=== PATIENT | male | born 1970 | race Caucasian/White ===

== ENCOUNTER 2021-05-11 07:07 | Emergency (ER) | payer OTHER, SELFPAY ==
--- NOTE | ~2021-05-11 | XR_ITS ---
EXAMINATION: XR SHOULDER, LEFT CLINICAL INFORMATION: Fall, trauma, pain COMPARISON: None TECHNIQUE: Left shoulder is imaged in 3 views. FINDINGS: There is no fracture, dislocation, destructive process. The acromioclavicular alignment is normal. There are no visible rotator cuff calcifications. Left lung apex is no pneumothorax or pleural reaction. XR/XR shoulder LT min 2V IMPRESSION: Normal left shoulder.
[2021-05-11 08:50] VITALS: BP 120/93; PULSE 55; RESP 16; TEMP 36.2; O2SAT 98; BMI 21.5
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
== END 2021-05-11 10:15 | disposition home or self-care (01) ==
PROVIDERS: Emergency Provider Internal Medicine; PCP Internal Medicine
DX: S40.012A Contusion of left shoulder, initial encounter (principal); S00.91XA Abrasion of unspecified part of head, initial encounter; S80.212A Abrasion, left knee, initial encounter; S40.212A Abrasion of left shoulder, initial encounter; V29.9XXA Motorcycle rider (driver) (passenger) injured in unspecified traffic accident, initial encounter; Y93.9 Activity, unspecified; Y92.9 Unspecified place or not applicable; Y99.9 Unspecified external cause status
CPT/HCPCS: 73030; 99283

== ENCOUNTER 2023-02-15 16:51 | Emergency (ER) | payer BC, SELFPAY ==
[2023-02-15 17:22] VITALS: BP 141/79; PULSE 96; RESP 18; TEMP 36.4; O2SAT 95; BMI 21.5
[2023-02-15] MEDS: Cyclobenzaprine HCl 10 MG TABLET PO (17:39)
[2023-02-15] MEDS: Acetaminophen 325 MG TABLET 975 MG PO (17:40)
[2023-02-15] MEDS: Ketorolac Tromethamine 30 MG/ML VIAL IM (17:40)
--- NOTE | 2023-02-15 17:44 | PC.NURSE ---
pt a&ox3, vss, medicated per MAR for 8/10 lower back pain after putting on shoes this afternoon at work. reports that pain is intermittent and stabbing in nature.
--- NOTE | 2023-02-15 17:51 | ED_ITS ---
HPI - Back Pain/Injury General Chief Complaint: Back Pain/Injury Stated Complaint: lower back spasms Time Seen by Provider: 02/15/23 17:15 History of Present Illness HPI Narrative: Patient is a 52 yo male here for lower back pain shooting down his legs with numbness and tingling down both legs. He states he was bending over lifting at work and immediately felt a stabbing pain in his lower back region. He states he has not taken anything for pain releif. The pain is worse with laying down and sitting. He denies fever, chills,sob, or chest pain. He denies any medical history or any drug use, but is currently on suboxone. MD elicited complaint: back pain Onset (ago): day(s) (2) Timing: progressively worsening Severity: severe Quality: stabbing Location: right lower back and right upper back Radiation: left upper leg, right upper leg, left leg below the knee and right leg below the knee Exacerbating factors: sitting upright and walking Context: while lifting and bending Associated symptoms: denies other symptoms Related Data Home Medications Medication Instructions Recorded Confirmed buprenorphine 8 mg-naloxone 2 mg 10 mg sublingual BID 03/01/22 sublingual film (Suboxone) buspirone 10 mg tablet 10 mg PO BID 03/01/22 sertraline 50 mg tablet 50 mg PO BEDTIME 03/01/22 Previous Rx's Medication Instructions Recorded meloxicam 15 mg tablet 15 mg PO DAILY #14 tabs 03/01/22 amoxicillin 875 mg-potassium 1 tab PO Q12H 10 days #20 tabs 11/20/22 clavulanate 125 mg tablet trazodone 150 mg tablet 150 mg PO BEDTIME #90 tabs 01/07/23 cyclobenzaprine 10 mg tablet 10 mg PO TID PRN pain #10 tabs 02/15/23 lidocaine 5 % topical patch 1 patch topical DAILY pain #15 ea 02/15/23 Allergies Allergy/AdvReac Type Severity Reaction Status Date / Time No Known Allergies Allergy Verified 02/15/23 17:21 Review of Systems Review of Systems: Yes all other systems are reviewed and are negative [facility] Past Medical History Medical History History of fracture of clavicle No known health problems Surgical History History of bunionectomy History of hernia surgery Family History Family History Sister Mental health disorder Social History Social History Housing: Apartment Alcohol intake: never Patient Tobacco Use Status: Current everyday Tobacco user Tobacco use type: Cigarette Cigarette Packs Per Day: 0.5 Cigarettes Per Day: 10 e-Cigarette/Vaping Use: Never Used Second Hand Smoke Exposure: Yes Advance Directives: No Advance Directives Information Provided: No service: No Current occupational status: unemployed Cognitive needs: No Hearing needs: No Vision needs: No Physical Exam Vital Signs: Vital Signs: Last Vital Signs Temp 97.6 F 02/15/23 17:22 Pulse 96 02/15/23 17:22 Resp 18 02/15/23 17:22 BP 141/79 H 02/15/23 17:22 Pulse Ox 95 02/15/23 17:22 O2 Del Method Room Air 02/15/23 17:22 BMI result Body Mass Index 21.5 Appearance: Alert. Oriented X3. No acute distress. Head: normocephalic, atraumatic. Neck: Normal inspection. CVS: Normal heart rate and rhythm. Pulses normal. Respiratory: No respiratory distress. Breath sounds normal. Skin: Skin warm and dry. Normal skin color. Normal skin turgor. Back: Spine is not painful to palpation. Palpable pain in both left and right lower back. Extremities: Positive straight leg test bilaterally. Pain with hip flexion and extension bilaterally. Neuro/psych: Oriented X 3. No motor deficit. No sensory deficit. Normal speech and cognition. Medications Administered Discontinued Medications Generic Name Dose Route Start Last Admin Trade Name Freq PRN Reason Stop Dose Admin Acetaminophen 975 mg 02/15/23 17:31 02/15/23 17:40 Acetaminophen 325 Mg Tablet PO 02/15/23 17:32 975 mg ONCE ONE Administration Cyclobenzaprine HCl 10 mg 02/15/23 17:35 02/15/23 17:39 Cyclobenzaprine Hcl 10 Mg Tablet PO 02/15/23 17:36 10 mg ONCE ONE Administration Ketorolac Tromethamine 30 mg 02/15/23 17:31 02/15/23 17:40 Ketorolac Tromethamine 30 Mg/Ml Vial IM 02/15/23 17:32 30 mg ONCE ONE Administration Medical Decision Making Medical Decision Making [facility] Narrative: Patient's symptoms are most consistent with bilateral sciatica. He denies fever, or genitourinary symptoms so cauda equina and spinal abcess are unlikely. Patient was given cyclobenzaprine, acetaminophen, and ketorlac with relief. patient stable for discharge home with muscle relaxers, NSAIDs, Lidoderm. he will follow-up with primary care doctor on saturday. Differential Diagnosis Differential Diagnoses: The differential diagnosis associated with the presentation includes Inflammatory disorders, malignancy, trauma, osteoporosis, nerve root compress ion, radiculopathy, plexopathy, degenerative disc disease, disc herniation, spinal stenosis, sacroiliac joint dysfunction, facet joint injury, and less likely infection?like abscess or diskitis Tests considered The following testing was considered but not selected: imaging of the back was considered, not indicated today, no trauma. Prescription Management I considered prescription management with: Pain Medication Patient previously on Suboxone, will defer narcotics. Critical Care Time Critical Care Time Critical Care Time: No Discharge Plan Discharge Clinical Impression: Sciatica Patient Disposition: Home, Self-Care Instructions: Acute Low Back Pain (ED), Lower Back Exercises (ED) Additional Instructions: Your pain is most likely due to muscle strain and spasm. No bending, lifting or twisting. Use ice several times per day for 20 minutes at a time for the next 48 hours and then change to heat. Take medications as prescribed to help with pain and discomfort. Follow up with your Primary Care Doctor this week. If your pain worsens, if you develop new numbness, tingling, weakness, loss of function or incontinence call 911 or come back to the ER right away for evaluation. Prescriptions: New cyclobenzaprine 10 mg tablet 10 mg PO TID PRN (Reason: pain) Qty: 10 0RF lidocaine 5 % adhesive patch,medicated 1 patch topical DAILY Qty: 15 0RF Rx Instructions: leave on most painful area for up to 12 hrs No Action trazodone 150 mg tablet 150 mg PO BEDTIME Qty: 90 0RF buspirone 10 mg tablet 10 mg PO BID sertraline 50 mg tablet 50 mg PO BEDTIME buprenorphine-naloxone [Suboxone] 8-2 mg film 10 mg sublingual BID meloxicam 15 mg tablet 15 mg PO DAILY Qty: 14 0RF amoxicillin-pot clavulanate 875-125 mg tablet 1 tab PO Q12H 10 Days Qty: 20 0RF Referrals: Po,Christina Rosario MD [Primary Care Provider] - (LBP) Stand Alone Forms: Work/School Release
--- NOTE | 2023-02-15 18:43 | PC.NURSE ---
pt reporting reduction in pain to 6/10, ambulated independently to restroom.
== END 2023-02-15 18:57 | disposition home or self-care (01) ==
PROVIDERS: Emergency Provider Internal Medicine; PCP Internal Medicine
DX: M54.42 Lumbago with sciatica, left side (principal); M54.41 Lumbago with sciatica, right side; F17.210 Nicotine dependence, cigarettes, uncomplicated
CPT/HCPCS: 96372; 99283; 99284; J1885

== ENCOUNTER → 2023-07-18 13:44 | Outpatient (BNVA) | payer SELFPAY | PROVIDERS: PCP Internal Medicine; Visit Provider Physician Assistant Medical ==

== ENCOUNTER 2023-11-26 07:48 | Emergency (ER) | payer OTHER, SELFPAY ==
--- NOTE | ~2023-11-26 | XR_ITS ---
EXAMINATION: XR CHEST CLINICAL INFORMATION: Cough COMPARISON: Left shoulder radiographs 05/11/[address] chest 04/29/2015 TECHNIQUE: 2 views of the chest were obtained. FINDINGS: No significant abnormality is noted involving the heart, lungs, mediastinum, bony thorax or soft tissues. Since the prior shoulder radiographs, the distal end of the left clavicle appears to have been resected. XR/XR chest 2V IMPRESSION: No acute intrathoracic disease.
[2023-11-26 08:03] VITALS: BP 121/91; PULSE 66; RESP 16; TEMP 36.1; O2SAT 99; BMI 21.5
[2023-11-26 08:41] LABS: MANUAL DIFF FLAG NO
[2023-11-26 08:43] LABS: Basophils Absolute Auto 0.1 X10*3/uL (0.0-0.2); Basophils Percent Auto 0.3 % (0-2); Eosinophils Absolute Auto 0.1 X10*3/uL (0.0-0.4); Eosinophils Percent Auto 0.4 % (0-4); Hematocrit 42.6 % (42.0-52.0); Hemoglobin 14.3 g/dl (14.0-18.0); Imm Gran Abs Auto 0.07 X10*3/uL (0.00-0.03); Imm Gran Pct Auto 0.4 % (0.0-0.4); Lymphocytes Absolute Auto 1.4 X10*3/uL (1.2-4.9); Lymphocytes Percent Auto 8.2 % (20-40); Mean Corpuscular HGB Conc 33.6 g/dl (31.0-36.0); Mean Corpuscular Hemoglobin 30.6 pg (27.0-33.0); Mean Platelet Volume 9.2 fL (9.4-12.4); Monocytes Absolute Auto 0.8 X10*3/uL (0.1-1.2); Monocytes Percent Auto 4.4 % (2-11); Neutrophils Absolute Auto 14.9 x10*3/uL (2.0-8.3); Neutrophils Percent Auto 86.3 % (45-73); Platelet Count 217 X10*3/uL (160-400); Red Blood Count 4.68 X10*6/uL (4.60-5.80); Red Cell Distribution Width 13.2 % (11.0-16.0); White Blood Count 17.2 X10*3/uL (4.8-10.8)
--- NOTE | 2023-11-26 08:47 | ED_ITS ---
HPI - Nausea/Vomiting/Diarrhea General Chief complaint: Nausea/Vomiting/Diarrhea Stated complaint: Flu Symptoms Time Seen by Provider: 11/26/23 08:26 Source: patient Mode of arrival: ambulatory History of Present Illness HPI Narrative: 53-year-old male who presents with nausea and vomiting since yesterday, regular alcoholic drinker, also reports cough, everyday smoker, denies any seizures with abstaining from alcohol but states last alcoholic drink was yesterday and attempted to drink coffee today but repeated vomiting and so came into the emergency room. Related Data Home Medications Medication Instructions Recorded Confirmed buprenorphine 8 mg-naloxone 2 mg 10 mg sublingual BID 03/01/22 sublingual film (Suboxone) buspirone 10 mg tablet 10 mg PO BID 03/01/22 sertraline 50 mg tablet 50 mg PO BEDTIME 03/01/22 Previous Rx's Medication Instructions Recorded meloxicam 15 mg tablet 15 mg PO DAILY #14 tabs 03/01/22 amoxicillin 875 mg-potassium 1 tab PO Q12H 10 days #20 tabs 11/20/22 clavulanate 125 mg tablet cyclobenzaprine 10 mg tablet 10 mg PO TID PRN pain #10 tabs 02/15/23 lidocaine 5 % topical patch 1 patch topical DAILY pain #15 ea 02/15/23 trazodone 150 mg tablet 150 mg PO BEDTIME #90 tabs 09/02/23 Allergies Allergy/AdvReac Type Severity Reaction Status Date / Time No Known Allergies Allergy Verified 02/15/23 17:21 Review of Systems 2 Review of Systems: Pertinent positives and negatives as stated in HPI PMFSH Past Medical History Source: nursing notes reviewed Medical History History of fracture of clavicle No known health problems Surgical History History of hernia surgery History of bunionectomy Family History Family History Sister Mental health disorder Social History Social History Housing: Apartment Alcohol intake: current Alcohol type: hard liquor Patient Tobacco Use Status: Current everyday Tobacco user Tobacco use type: Cigarette Cigarette Packs Per Day: 0.5 Cigarettes Per Day: 10 e-Cigarette/Vaping Use: Never Used Second Hand Smoke Exposure: Yes Advance Directives: Yes Advance Directives Information Provided: Yes Advance Directives on File: No service: No Current occupational status: unemployed Cognitive needs: No Hearing needs: No Vision needs: No Physical Exam 2 Vital Signs: Vital Signs: Last Vital Signs Temp 98.5 F 11/26/23 10:13 Pulse 48 L 11/26/23 10:13 Resp 14 11/26/23 10:13 BP 115/78 11/26/23 10:13 Pulse Ox 98 11/26/23 10:13 O2 Del Method Room Air 11/26/23 10:13 BMI result Body Mass Index 21.5 VITAL SIGNS: Reviewed. GENERAL: Well developed, well nourished, in no acute distress. HEAD: Normocephalic/atraumatic EYES: PERRLA, EOMI EARS: Ext canals without abnormality, TMs non-bulging and non-erythematous NOSE: Nares patent bilateral OROPHARYNX: no oral lesions noted, posterior pharynx clear and non-erythematous without noted tonsillar enlargement/erythema/exudates NECK: Supple, no adenopathy LUNGS: Normal breath sounds. No adventitious sounds or accessory muscle use. SpO2<99> CARDIOVASCULAR: Regular rate and rhythm without noted murmurs ABDOMEN: Soft, epigastric discomfort, non-distended with bowel sounds. MUSCULOSKELETAL: No tenderness, deformities, or effusions noted on gross inspection. EXTREMITIES: No cyanosis, clubbing or edema. SKIN: Inspection of the skin reveals no rashes NEUROLOGIC: Alert and oriented x 4. Strength and sensation to light touch were grossly intact x 4. Medications Administered Discontinued Medications Generic Name Dose Route Start Last Admin Trade Name Freq PRN Reason Stop Dose Admin Sodium Chloride 1,000 mls @ 999 mls/hr 11/26/23 08:45 11/26/23 09:11 Ns IV 11/26/23 09:45 999 mls/hr .Q1H1M WILDER Administration Ondansetron HCl 4 mg 11/26/23 08:59 11/26/23 09:11 Ondansetron Hcl 4 Mg/2 Ml Vial IVPUSH 11/26/23 09:00 4 mg ONCE ONE Administration Medical Decision Making Medical Decision Making MDM Narrative: 53-year-old male with history and clinical presentation, DDX: Alcoholic gastritis, pancreatitis, possible viral illness but lower clinical suspicion I reviewed all investigations and patient presents with a noninfectious leukocytosis likely secondary to reactive from nausea and vomiting, patient is otherwise afebrile and chest x-ray is negative for infiltrate. Chemistry indices negative for SHANICE/electrolyte or liver enzyme derangements. Viral testing negative for influenza/RSV/COVID. Patient received 1 L of IV fluids as well as sublingual Zofran and is noted to tolerate both oral and solid intake. Differential Diagnosis Differential Diagnoses: The differential diagnosis associated with the presentation includes Please see the discussion above Admission/Observation Consideration of admission/observation: Escalation of care including admission/observation considered Please see the discussion above Lab Data MDM Lab Attestation statement: I reviewed the patient's lab results. Please see the discussion above 11/26/23 08:37 11/26/23 08:37 Labs: Lab Results 11/26/23 Range/Units 08:37 WBC 17.2 H (4.8-10.8) X10*3/uL RBC 4.68 (4.60-5.80) X10*6/uL Hgb 14.3 (14.0-18.0) g/dl Hct 42.6 (42.0-52.0) % MCV 91.0 (80.0-98.0) fL MCH 30.6 (27.0-33.0) pg MCHC 33.6 (31.0-36.0) g/dl RDW 13.2 (11.0-16.0) % Plt Count 217 (160-400) X10*3/uL MPV 9.2 L (9.4-12.4) fL Immature Gran % (Auto) 0.4 (0.0-0.4) % Neut % (Auto) 86.3 H (45-73) % Lymph % (Auto) 8.2 L (20-40) % [place] % (Auto) 4.4 (2-11) % Eos % (Auto) 0.4 (0-4) % Baso % (Auto) 0.3 (0-2) % Lymph # (Auto) 1.4 (1.2-4.9) X10*3/uL [place] # (Auto) 0.8 (0.1-1.2) X10*3/uL Eos # (Auto) 0.1 (0.0-0.4) X10*3/uL Baso # (Auto) 0.1 (0.0-0.2) X10*3/uL Abs Immat Gran (auto) 0.07 H (0.00-0.03) X10*3/uL Absolute Neuts (auto) 14.9 H (2.0-8.3) x10*3/uL Absolute Nucleated RBC 0.000 (0.0-0.012) X10*3/uL Nucleated RBC % (auto) 0.0 (0.0-0.2) /100WBC Sodium 140 (135-145) mmol/L Potassium 3.9 (3.3-5.1) mmol/L Chloride 105 (96-108) mmol/L Carbon Dioxide 28 (22-29) mmol/L Anion Gap 11 L (12-20) BUN 13 (9-16) mg/dL Creatinine 0.96 (0.5-1.4) mg/dL Estim Creat Clear Calc 83.6 Estimated GFR > 60 Random Glucose 99 (60-115) mg/dL Calcium 9.9 (8.4-10.2) mg/dL Total Bilirubin 0.8 (0.0-1.0) mg/dL AST 17 (5-37) U/L ALT 9 (0-40) U/L Alkaline Phosphatase 66 (39-117) U/L Total Protein 7.3 (6.5-8.0) g/dL Albumin 4.3 (3.5-5.0) g/dL Lipase 14 (8-78) U/L Influenza Type A (PCR) NEGATIVE (Negative) Influenza Type B (PCR) NEGATIVE (Negative) RSV RNA Qual (PCR) NEGATIVE (Negative) SARS-CoV-2 RNA (RT-PCR) NEGATIVE (Negative) Radiology Impression Discussion of test interpretation with radiology: I have reviewed the radiologist's reading. Radiologist Impression: Please see the discussion above Critical Care Time Critical Care Time Critical Care Time: Yes Total Critical Care Time: 30 Attestation: I personally attest to this time spent taking care of the patient. Discharge Plan Discharge Clinical Impression: Gastroenteritis, Bronchitis Patient Disposition: Home, Self-Care Instructions: Gastroenteritis (ED), Chronic Bronchitis (ED) Additional Instructions: 1. Continue to drink plenty of water, please follow-up with your primary care doctor in the next 1-2 days. Return to the ER for any worsening symptoms. Prescriptions: No Action trazodone 150 mg tablet 150 mg PO BEDTIME Qty: 90 0RF cyclobenzaprine 10 mg tablet 10 mg PO TID PRN (Reason: pain) Qty: 10 0RF lidocaine 5 % adhesive patch,medicated 1 patch topical DAILY Qty: 15 0RF Rx Instructions: leave on most painful area for up to 12 hrs buspirone 10 mg tablet 10 mg PO BID sertraline 50 mg tablet 50 mg PO BEDTIME buprenorphine-naloxone [Suboxone] 8-2 mg film 10 mg sublingual BID meloxicam 15 mg tablet 15 mg PO DAILY Qty: 14 0RF amoxicillin-pot clavulanate 875-125 mg tablet 1 tab PO Q12H 10 Days Qty: 20 0RF Referrals: Po,Christina Rosario MD [Primary Care Provider] -
[2023-11-26 09:01] LABS: Alanine Aminotransferase 9 U/L (0-40); Albumin Level 4.3 g/dL (3.5-5.0); Alkaline Phosphatase 66 U/L (39-117); Anion Gap 11 (12-20); Aspartate Amino Transferase 17 U/L (5-37); Bilirubin Total 0.8 mg/dL (0.0-1.0); Blood Urea Nitrogen 13 mg/dL (9-16); Calcium 9.9 mg/dL (8.4-10.2); Carbon Dioxide 28 mmol/L (22-29); Chloride 105 mmol/L (96-108); Creatinine Clr Calc Pharmacy 83.6; Estimated Glomerular Filt Rate > 60; Glucose Random 99 mg/dL (60-115); Lipase 14 U/L (8-78); Potassium 3.9 mmol/L (3.3-5.1); Sodium 140 mmol/L (135-145); Total Protein 7.3 g/dL (6.5-8.0)
[2023-11-26] MEDS: ondansetron HCL 4 MG/2 ML VIAL IVPUSH (09:11)
[2023-11-26] MEDS: 0.9 % Sodium Chloride 1,000 ML 999 ML IV (09:11)
[2023-11-26 09:23] LABS: Influenza A PCR NEGATIVE (Negative); Influenza B PCR NEGATIVE (Negative); Resp Syncy Virus RNA Qual PCR NEGATIVE (Negative); SARS COV2 PCR INHOUSE NEGATIVE (Negative)
--- NOTE | 2023-11-26 09:51 | PC.NURSE ---
PO trial completed and tolerated well at this time, denies n/v/d/pain
[2023-11-26 10:13] VITALS: BP 115/78; PULSE 48; RESP 14; TEMP 36.9; O2SAT 98
== END 2023-11-26 11:35 | disposition home or self-care (01) ==
PROVIDERS: Physician Assistant Medical; Emergency Provider Student in an Organized Health Care Education/Training Program; PCP Internal Medicine
DX: K52.9 Noninfective gastroenteritis and colitis, unspecified (principal); J40 Bronchitis, not specified as acute or chronic; R11.2 Nausea with vomiting, unspecified; R05.9 Cough, unspecified; F17.210 Nicotine dependence, cigarettes, uncomplicated; Z11.52 Encounter for screening for COVID-19; Z20.822 Contact with and (suspected) exposure to COVID-19; Z79.899 Other long term (current) drug therapy
CPT/HCPCS: 0241U; 36415; 71046; 80053; 83690; 85025; 96374; 99284; J2405

== ENCOUNTER 2023-11-28 10:16 | Outpatient (AMB) | payer OTHER, SELFPAY ==
--- NOTE | 2023-11-28 10:16 | A.OFFPC_ITS ---
Intake Visit Reasons: Flu Symptoms [id number] Intake Note: Patient is here today for shortness of breath, yellowish green mucus with cough, congestion, fever, chills, stomach cramps, vomiting and diarrhea. Covid test was negative. 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 Patient was recently in the emergency room for nausea, vomiting and diarrhea. He has history of alcohol use. Blood work showed an elevated white count. Patient was diagnosed with dehydration and given IV fluids. Patient reports that he is improving slowly. The vomiting and nausea have subsided. Does have 1-2 episodes of diarrhea. Continues to feel tired. Requesting a refill on albuterol and omeprazole. [facility] Medical History History of fracture of clavicle No known health problems Surgical History History of hernia surgery History of bunionectomy Family History Sister Mental health disorder Social History (Updated 11/28/23 @ 10:23 by ANIKA Gilmore) Housing: Apartment Alcohol intake: current Alcohol intake frequency: 0-2 drinks per day Alcohol type: hard liquor Patient Tobacco Use Status: Current everyday Tobacco user Tobacco use type: Cigarette Cigarette Packs Per Day: 0.5 Cigarettes Per Day: 10 e-Cigarette/Vaping Use: Never Used Second Hand Smoke Exposure: Yes service: No Current occupational status: employed Cognitive needs: No Hearing needs: No Vision needs: No Questionnaire PHQ-9 Over the last 2 weeks, how often have you been bothered by any of the following problems? 1. Little interest or pleasure in doing things: not at all 2. Feeling down, depressed, or hopeless: not at all 3. Trouble falling or staying asleep, or sleeping too much: not at all 4. Feeling tired or having little energy: not at all 5. Poor appetite or overeating: not at all 6. Feeling bad about yourself - or that you are a failure or have let yourself or your family down: not at all 7. Trouble concentrating on things, such as reading the newspaper or watching television: not at all 8. Moving or speaking so slowly that other people could have noticed. Or the opposite - being so fidgety or restless that you have been moving around a lot more than usual: not at all 9. Thoughts that you would be better off or of hurting yourself in some way: not at all Total score: 0 Depression Screening Interpretation: Negative Depression Screening Done: Yes Source: Developed by Drs. Jason Tiwari, Miguelina Ernandez, Trell Howard and colleagues, with an educational teresita from [employer]. Thrive Questionnaire Date Thrive assessed: 11/28/23 I am a: Patient What is your living situation today?: I have a steady place to live Within the past 12 months, did the food you bought not last and you didn't have the money to get more?: Never true Within the past 12 months, did you worry whether your food would run out before you got money to buy more?: Never true Do you have trouble paying for medicines?: No Do you have trouble getting transportation to medical appointments?: No Do you have trouble paying your heating and electricity bill?: No Do you have trouble taking care of your child, family member or friend?: No Do you have trouble with day-to-day activities such as bathing, preparing meals, shopping, managing finances, etc.?: No Are you currently unemployed and looking for a job?: No Are you interested in more education?: No Currently or been in a relationship where the following occur: no concerns reported THRIVE Score: 0 AUDIT C Alcohol Use Questionnaire (AUDIT-C) 1. How often do you have a drink containing alcohol?: 4 or more times a week 2. How many drinks containing alcohol do you have on a typical day when you are drinking?: 1 or 2 Total Score: 4 DANIELLA-7 AMB Questionnaire DANIELLA-7 Date DANIELLA - 7 assessed: 11/28/23 Feeling nervous, anxious, or on edge: 0 = Not at all Not being able to stop or control worryin = Not at all Worrying too much about different things: 0 = Not at all Trouble relaxin = Not at all Being so restless that it is hard to sit still: 0 = Not at all Becoming easily annoyed or irritable: 0 = Not at all Feeling afraid as if something awful might happen: 0 = Not at all Total DANIELLA-7 score (0-4 normal; 5-9 mild; 10-14 moderate; 15-21 severe): 0 Source: Developed by Drs. Jason Tiwari, Miguelina Ernandez, Trell Howard and colleagues, with an educational teresita from [employer]. Physical exam (Primary Care) Tobacco/Smoking Status: Tobacco use Status Tobacco use date assessed 03/01/22 11/28/23 10:24 Patient Tobacco Use Status Current everyday Tobacco 11/28/23 10:24 Tobacco use type Cigarette 11/28/23 10:24 e-Cigarette/Vaping Use Never Used 11/28/23 10:24 PHQ-9: PHQ-9 Score PHQ-9: Total score 0 11/28/23 10:24 Depression Screening Interpretation: Negative Thrive Assessment: Date of Thrive Assessment Date Thrive assessed 11/28/23 11/28/23 10:24 Currently or been in a relationship where the following occur: no concerns reported Telehealth Telehealth Location of provider rendering services: practice address Location of patient: address on file Patient Identification confirmed using: Name, : Yes Telehealth method: voice only Patient verbally consented to treatment: Yes Patient verbally consented to billing insurance company: Yes Patient informed of any privacy concerns related to visit: Yes Minutes spent on Phone/Video with Pt.: 15 Assessment and Plan Assessment & Plan (1) Gastroenteritis: Code(s): K52.9 - Noninfective gastroenteritis and colitis, unspecified Plan: Blood work from the hospital reviewed. Continue hydration. Medications refilled. Medications: New albuterol sulfate 90 mcg/actuation (Ventolin HFA) 1 inh inhalation QID PRN 8.5 grams 1RF shortness of breath or wheezing pantoprazole 40 mg PO DAILY 14 tabs 0RF Refilled lidocaine 5% leave on most painful area for up to 12 hrs 1 patch topical DAILY 15 ea 0RF pain meloxicam 15 mg PO DAILY 14 tabs 0RF cyclobenzaprine 10 mg PO TID PRN 10 tabs 0RF pain Coding Level of Care Code Tele Est Pt Level 3 (16636) Diagnoses Gastroenteritis K52.9
== END 2023-11-28 12:49 | disposition home or self-care (01) ==
LOC: HO.HMGH 10:16
PROVIDERS: PCP Internal Medicine; Visit Provider Internal Medicine
DX: K52.9 Noninfective gastroenteritis and colitis, unspecified (principal)
CPT/HCPCS: 99213

== ENCOUNTER 2024-04-22 11:02 | Outpatient (AMB) | payer OTHER, SELFPAY ==
[2024-04-22 11:03] VITALS: BP 106/88; PULSE 83; BMI 20.1
--- NOTE | 2024-04-22 11:03 | MHC.PC.OV ---
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 Required: No Allergies No Known Allergies Allergy (Verified 04/22/24 11:03) Medication List - Last Reconciled 04/22/24 by Ashley Wilson PA-C albuterol sulfate 90 mcg/actuation (Ventolin HFA) 1 inh inhalation QID PRN buprenorphine-naloxone 8-2 mg (Suboxone) 10 mg sublingual BID buspirone 10 mg PO BID cyclobenzaprine 10 mg PO TID PRN lidocaine 5% 1 patch topical DAILY meloxicam 15 mg PO DAILY pantoprazole 40 mg PO DAILY sertraline 50 mg PO BEDTIME trazodone 150 mg PO BEDTIME Tobacco use date assessed: 04/22/24 Dental Screening Dental Screen Date: 11/28/23 HPI Back Pain HPI Details 53-year-old male with past medical history depression last seen by Dr. Bowser 11/28/2023 coming in for acute visit. Patient states today that he has been having low back pain with mild radiation to the right hip and sometimes down the legs for the last 2-3 months. He denies any falls or injury. Lying on his side improves the pain and lying on his back worsens the pain. He has been using the Suboxone for the pain and has been previously prescribed muscle relaxers and meloxicam. He also mentions he has been having right foot pain and has a history of a bunionectomy bilaterally and the bunion has returned on the right side. His asthma has been poorly controlled and has been using his rescue inhaler daily for symptom management. He continues to smoke cigarettes. [facility] Medical History History of fracture of clavicle No known health problems Surgical History History of hernia surgery History of bunionectomy Family History Sister Mental health disorder Social History Housing: Apartment Alcohol intake: current Alcohol intake frequency: 0-2 drinks per day Alcohol type: hard liquor Patient Tobacco Use Status: Current everyday Tobacco user Tobacco use type: Cigarette Cigarette Packs Per Day: 0.5 Cigarettes Per Day: 10 e-Cigarette/Vaping Use: Never Used Second Hand Smoke Exposure: Yes service: No Current occupational status: employed Cognitive needs: No Hearing needs: No Vision needs: No Questionnaire Thrive Questionnaire Date Thrive assessed: 11/28/23 I am a: Patient What is your living situation today?: I have a steady place to live Within the past 12 months, did the food you bought not last and you didn't have the money to get more?: Never true Within the past 12 months, did you worry whether your food would run out before you got money to buy more?: Never true Do you have trouble paying for medicines?: No Do you have trouble getting transportation to medical appointments?: No Do you have trouble paying your heating and electricity bill?: No Do you have trouble taking care of your child, family member or friend?: No Do you have trouble with day-to-day activities such as bathing, preparing meals, shopping, managing finances, etc.?: No Are you currently unemployed and looking for a job?: No Are you interested in more education?: No Please select the resources that you would like help with: None Currently or been in a relationship where the following occur: No concerns reported THRIVE Score: 0 AUDIT C Alcohol Use Questionnaire (AUDIT-C) 1. How often do you have a drink containing alcohol?: 4 or more times a week 2. How many drinks containing alcohol do you have on a typical day when you are drinking?: 1 or 2 3. How often do you have six or more drinks on one occasion?: Never Total Score: 4 DANIELLA-7 AMB Questionnaire DANIELLA-7 Date DANIELLA - 7 assessed: 11/28/23 Source: Developed by Drs. Jason Tiwari, Miguelina Ernandez, Trell Howard and colleagues, with an educational teresita from [employer]. Review of Systems Const Denies body aches, Denies chills, Denies fever(s), Denies headache(s) and Denies poor appetite Eyes Reports no additional complaints ENT Denies dysphagia, Denies dizziness, Denies headache(s) and Denies odynophagia Card Denies chest pain, Denies syncope, Denies edema, Denies irregular heart rhythm, Denies lightheadedness and Reports dyspnea (Poorly controlled asthma) Resp Denies cough and Reports dyspnea (Poorly controlled asthma) GI Denies abdominal pain, Denies constipation, Denies dysphagia, Denies diarrhea, Denies nausea, Denies odynophagia and Denies vomiting Reports no additional complaints Musc Reports as per HPI and Denies abnormal gait Skin/Breast Reports system reviewed and no additional complaints, except as documented Neuro Denies abnormal gait, Denies dizziness, Denies syncope and Denies headache(s) Psych Reports no additional complaints Physical exam (Primary Care) Vital Signs: Last Vital Signs Pulse 83 04/22/24 11:03 BP 106/88 04/22/24 11:03 Oxygen Delivery Method Room Air 04/22/24 11:03 BMI result Body Mass Index 20.1 Tobacco/Smoking Status: Tobacco use Status Tobacco use date assessed 04/22/24 04/22/24 11:04 Patient Tobacco Use Status Current everyday Tobacco 04/22/24 11:04 Tobacco use type Cigarette 04/22/24 11:04 e-Cigarette/Vaping Use Never Used 04/22/24 11:04 Are you ready to quit: Yes Tobacco cessation counseling provided: Yes Items discussed: Nicotine replacement Relapse Prevention: discussed the importance of a supportive environment Number of minutes spent counselin CPT code: 53478 - 4-10 Minutes Thrive Assessment: Date of Thrive Assessment Date Thrive assessed 11/28/23 04/22/24 11:04 Currently or been in a relationship where the following occur: No concerns reported Const General: cooperative, healthy appearing, comfortable and no acute distress Orientation/consciousness: patient oriented x3 HENMT Head: Yes normocephalic Ears: hearing grossly normal bilaterally General nose exam: Normal external nose present Eyes General: appearance normal, both eyes and all related structures Conjunctivae: conjunctivae normal Neck Neck: Yes full ROM and Yes no lymphadenopathy Resp Effort & Inspection: normal respiratory effort Auscultation: clear to auscultation bilaterally, no crackles, no rales, no rhonchi and no wheezes Cardio Rate: regular rate Rhythm: regular rhythm Back/Spine/Pelvis Other: Tenderness to palpation over lumbar spine and sacrum without pain to palpation or paraspinous muscles Pelvis: no pain with anterior-posterior compression and no pain with lateral compression Skin General skin exam: no rashes or lesions noted Neuro General: patient oriented x3 Gait exam (Neuro): Normal gait present Extrem Other: Bunion on right foot with intact sensation, pulses, and strength of lower extremities bilaterally. General: Yes normal to inspection, Yes full ROM and No edema Psych Affect: normal affect Attitude: cooperative Insight: Good insight present (Psych) Judgement: Good judgement present (Psych) Assessment and Plan Assessment & Plan (1) Back pain: Code(s): M54.9 - Dorsalgia, unspecified Plan: Low back pain for 2-3 months without radiculopathy and some radiation to the right hip. Lumbar spine x-ray ordered and referral to physical therapy made. Also refilled cyclobenzaprine and meloxicam for the patient to use as needed for pain and inflammation. Advised patient not to use other NSAIDs while taking meloxicam and take this medication with food. Cyclobenzaprine may cause drowsiness, do not drive while taking this medication. (2) Bunion: Code(s): M21.619 - Bunion of unspecified foot Plan: History of bunionectomy bilaterally. Bunion on the right side has returned and referral to Podiatry made. (3) Tobacco abuse: Code(s): Z72.0 - Tobacco use Plan: Patient smokes a half pack a day of cigarettes. Interested in quitting at this time and nicotine patches sent to pharmacy. (4) Asthma: Code(s): J45.909 - Unspecified asthma, uncomplicated Plan: Patient has previous history of asthma and was prescribed albuterol inhaler as needed for symptom management. He states he has been using his inhaler daily for symptom management and not as prescribed. We will trial low-dose inhaled corticosteroid b.i.d. for symptom management and follow up at annual physical in 2-3 months. We will reach out sooner if symptoms continue to be uncontrolled. Plan Follow up in 2-3 months for annual physical. This note was constructed using voice recognition software. While every effort has been made to ensure accuracy and business associate, still areas may have been included sometimes these areas may affect the content or meeting of the given symptoms. Total time spent caring for the patient today was 35 minutes. This includes time spent before the visit reviewing the chart, time spent during the visit, and time spent after the visit and documentation. Orders: Orders XR lumbar spine 2-3V Today M54.9 - Dorsalgia, unspecified PT Evaluation and Treatment Today M54.9 - Dorsalgia, unspecified Referrals Podiatry Referral M21.619 - Bunion of unspecified foot Medications: New nicotine 1 patch transdermal DAILY 28 ea 1RF fluticasone propionate 44 mcg/actuation 1 puff inhalation BID 10.6 grams 2RF Refilled cyclobenzaprine 10 mg PO TID PRN 10 tabs 0RF pain meloxicam 15 mg PO DAILY 14 tabs 0RF Coding Level of Care Code Tele Est Pt Level 4 (10886) Diagnoses Back pain M54.9 Bunion M21.619 Tobacco abuse Z72.0 Asthma J45.909 Additional Codes Vital Signs *Quality* - CPT code: 35524 - 4-10 Minutes ([id number])
== END 2024-04-22 11:32 | disposition home or self-care (01) ==
PROVIDERS: PCP Internal Medicine
DX: M54.9 Dorsalgia, unspecified (principal); M21.619 Bunion of unspecified foot; Z72.0 Tobacco use; J45.909 Unspecified asthma, uncomplicated; F17.210 Nicotine dependence, cigarettes, uncomplicated
CPT/HCPCS: 99214; 99406

== ENCOUNTER 2024-06-12 16:34 | Emergency (ER) | payer OTHER, SELFPAY ==
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
[2024-06-12 16:39] VITALS: BP 146/96; PULSE 74; O2SAT 95
--- NOTE | 2024-06-12 16:47 | ECG_ITS ---
Test Reason : s/p bystander cpr Blood Pressure : / mmHG Vent. Rate : 061 BPM Atrial Rate : 061 BPM P-R Int : 150 ms QRS Dur : 106 ms QT Int : 422 ms P-R-T Axes : 020 -09 014 degrees QTc Int : 424 ms Normal sinus rhythm Moderate voltage criteria for LVH, may be normal variant ( R in aVL , Sam product ) Early Repolarization Borderline ECG When compared with ECG of 07-OCT-2009 10:28, Vent. rate has increased BY 20 BPM QT has lengthened Referred By: Lu Casey Electronically Signed By:SARA TIRADO
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
[2024-06-12 16:53] VITALS: BP 117/81; PULSE 65; RESP 16; TEMP 37; O2SAT 94; BMI 22.0
--- NOTE | 2024-06-12 16:54 | PC.NURSE ---
Patient changed w/ security assistance, belongings placed in C1. Patient insisted on keeping his 2 cellphones w/ him.
[2024-06-12 17:40] LABS: MANUAL DIFF FLAG NO
[2024-06-12 17:42] LABS: Basophils Absolute Auto 0.1 X10*3/uL (0.0-0.2); Basophils Percent Auto 0.9 % (0-2); Eosinophils Absolute Auto 0.1 X10*3/uL (0.0-0.4); Eosinophils Percent Auto 1.5 % (0-4); Hematocrit 41.1 % (42.0-52.0); Hemoglobin 13.9 g/dl (14.0-18.0); Imm Gran Abs Auto 0.02 X10*3/uL (0.00-0.03); Imm Gran Pct Auto 0.2 % (0.0-0.4); Lymphocytes Absolute Auto 2.9 X10*3/uL (1.2-4.9); Lymphocytes Percent Auto 32.6 % (20-40); Mean Corpuscular HGB Conc 33.8 g/dl (31.0-36.0); Mean Corpuscular Volume 94.5 fL (80.0-98.0); Mean Platelet Volume 8.8 fL (9.4-12.4); Monocytes Absolute Auto 0.9 X10*3/uL (0.1-1.2); Monocytes Percent Auto 9.8 % (2-11); Neutrophils Absolute Auto 4.9 x10*3/uL (2.0-8.3); Platelet Count 242 X10*3/uL (160-400); Red Blood Count 4.35 X10*6/uL (4.60-5.80); Red Cell Distribution Width 13.4 % (11.0-16.0)
[2024-06-12 17:47] LABS: INTERNATIONAL NORM RATIO 0.9 (0.9-1.1); Prothrombin Time 10.7 SEC (10.9-12.4)
[2024-06-12 17:52] LABS: Ethanol 352 mg/dL
[2024-06-12 17:56] LABS: Alanine Aminotransferase 15 U/L (0-40); Albumin Level 4.4 g/dL (3.5-5.0); Alkaline Phosphatase 70 U/L (39-117); Anion Gap 13 (12-20); Aspartate Amino Transferase 26 U/L (5-37); Bilirubin Direct 0.1 mg/dL (0.0-0.5); Bilirubin Total 0.3 mg/dL (0.0-1.0); Blood Urea Nitrogen 8 mg/dL (9-16); Calcium 9.1 mg/dL (8.4-10.2); Carbon Dioxide 27 mmol/L (22-29); Chloride 112 mmol/L (96-108); Creatinine Clr Calc Pharmacy 89.4; Estimated Glomerular Filt Rate > 60; Glucose Random 87 mg/dL (60-115); Lipase 45 U/L (8-78); Magnesium 2.4 mg/dL (1.6-2.6); Potassium 3.5 mmol/L (3.3-5.1); Sodium 148 mmol/L (135-145)
[2024-06-12 18:00] VITALS: BP 99/70; PULSE 57; RESP 16
[2024-06-12 18:00] LABS: B Type Natriuretic Peptide 46 pg/mL (<100)
[2024-06-12 18:05] LABS: Troponin-I High Sensitivity < 2.7 ng/L (<3.5-35.0)
[2024-06-12 19:32] LABS: Amphetamine Screen Urine Not Detected (Not Detect); Barbiturates, Urine Not Detected (Not Detect); Benzodiazepines Screen Urine Not Detected (Not Detect); Buprenorphine Scr Positive (Not Detect); Cannabinoid Screen Urine Not Detected (Not Detect); Cocaine Screen Urine Not Detected (Not Detect); Fentanyl, urine Not Detected (Not Detect); Methadone Screen, Urine Not Detected (Not Detect); Opiate Screen Urine Not Detected (Not Detect); Oxycodone Screen Urine Not Detected (Not Detect); Phencyclidine Screen Urine Not Detected (Not Detect)
[2024-06-12 20:56] VITALS: BP 99/70; PULSE 57; RESP 16; TEMP -17.7; TEMP 0; O2SAT 100
--- NOTE | 2024-06-12 20:58 | PC.NURSE ---
Assumed care of pt at 1900, pt in room sitting up drinking fluids, requesting to leave. Pt informed that he was unable to leave d/t alcohol level. Pt informed if he had a sober ride to pick him up we would be able to be discharged. 1999- pt threw blanket and brenda in hallway walking around n [facility], adamant he wants to go home, pt instructed to stop yelling and we would help him get home if his ride was on the way. Pt called Kaylen who said she was on her way. Pt upset but apologized for behavior, demanding his clothes. Pt informed he would get his clothes and IV removed once his was present to pick him up.
== END 2024-06-12 21:02 | disposition home or self-care (01) ==
PROVIDERS: Emergency Provider Emergency Medicine
DX: F10.129 Alcohol abuse with intoxication, unspecified (principal); Y90.8 Blood alcohol level of 240 mg/100 ml or more; R94.31 Abnormal electrocardiogram [ECG] [EKG]; R40.4 Transient alteration of awareness; Z79.899 Other long term (current) drug therapy
CPT/HCPCS: 36415; 71045; 80048; 80076; 80307; 83690; 83735; 83880; 84484; 85025; 85610; 93005; 99283; 99285

== ENCOUNTER 2024-06-17 10:34 | Outpatient (AMB) | payer OTHER, SELFPAY ==
[2024-06-17 10:42] VITALS: BP 128/80; PULSE 54; O2SAT 96; BMI 21.4
--- NOTE | 2024-06-17 10:42 | A.OFFPC_ITS ---
Vital Signs 06/17/24 10:42 Height 5 ft 10 in Weight 149 lb BMI 21.4 BP 128/80 Blood Pressure Location Lt brachial Position Sitting Pulse 54 Pulse Source Pulse Oximeter Pulse Oximetry (%) 96 Oxygen Delivery Method Room Air Intake Visit Reasons: 2 month f/u Back Pain [employer] Required: No Allergies No Known Allergies Allergy (Verified 06/17/24 10:42) Medication List - Last Reconciled 06/17/24 by Ashley Wilson PA-C albuterol sulfate 90 mcg/actuation (Ventolin HFA) 1 inh inhalation QID PRN buprenorphine-naloxone 8-2 mg (Suboxone) 10 mg sublingual BID buspirone 10 mg PO BID cyclobenzaprine 10 mg PO TID PRN fluticasone propionate 44 mcg/actuation 1 puff inhalation BID lidocaine 5% 1 patch topical DAILY meloxicam 15 mg PO DAILY nicotine 1 patch transdermal DAILY pantoprazole 40 mg PO DAILY sertraline 50 mg PO BEDTIME trazodone 150 mg PO BEDTIME Tobacco use date assessed: 04/22/24 Dental Screening Dental Screen Date: 11/28/23 HPI 2 month f/u Back Pain HPI Details 53-year-old male with past medical histo ry of tobacco abuse and asthma last seen March 2024 coming in for follow up on asthma and back pain.? 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 Today he tells us his back pain has been improving and does wax and wane with occasional movements. He was scheduled for physical therapy but could not make the appointments and will reach out on his own to reschedule these appointments. He feels his asthma has improved with the inhaled corticosteroid and now uses his albuterol inhaler less often. Does mentioned in the last week he has been using it almost daily as he has been having increased coughing and body aches. He has been coughing up greenish phlegm and does also mentioned having a sore throat. His symptoms began on Saturday. ON LICENSE OF [facility] Medical History History of fracture of clavicle No known health problems Surgical History History of hernia surgery History of bunionectomy Family History Sister Mental health disorder Social History Housing: Apartment Alcohol intake: current Alcohol intake frequency: 3 or more drinks per day Alcohol type: hard liquor Patient Tobacco Use Status: Current everyday Tobacco user Tobacco use type: Cigarette Cigarette Packs Per Day: 0.5 Cigarettes Per Day: 10 e-Cigarette/Vaping Use: Never Used Second Hand Smoke Exposure: Yes service: No Current occupational status: employed Cognitive needs: No Hearing needs: No Vision needs: No Questionnaire Thrive Questionnaire Date Thrive assessed: 11/28/23 Are you currently unemployed and looking for a job?: Yes AUDIT C Alcohol Use Questionnaire (AUDIT-C) 1. How often do you have a drink containing alcohol?: 4 or more times a week 2. How many drinks containing alcohol do you have on a typical day when you are drinking?: 1 or 2 3. How often do you have six or more drinks on one occasion?: Never Total Score: 4 DANIELLA-7 AMB Questionnaire DANIELLA-7 Date DANIELLA - 7 assessed: 11/28/23 Source: Developed by Drs. Jason Tiwari, Miguelina Ernandez, Trell Howard and colleagues, with an educational teresita from [employer]. Review of Systems Const Reports body aches, Denies chills and Denies fever(s) Eyes Reports no additional complaints ENT Denies otalgia, Denies facial pain, Denies nasal congestion, Denies nasal discharge and Reports sore throat Card Denies chest pain and Denies dyspnea Resp Reports cough, Denies hemoptysis and Denies dyspnea GI Reports no additional complaints Musc Reports no additional complaints Physical exam (Primary Care) Vital Signs: Last Vital Signs Pulse 54 06/17/24 10:42 BP 128/80 06/17/24 10:42 Pulse Ox 96 06/17/24 10:42 Oxygen Delivery Method Room Air 06/17/24 10:42 BMI result Body Mass Index 21.4 Tobacco/Smoking Status: Tobacco use Status Tobacco use date assessed 04/22/24 06/17/24 10:43 Patient Tobacco Use Status Current everyday Tobacco 06/17/24 10:43 Tobacco use type Cigarette 06/17/24 10:43 e-Cigarette/Vaping Use Never Used 06/17/24 10:43 Thrive Assessment: Date of Thrive Assessment Date Thrive assessed 11/28/23 06/17/24 10:43 Const General: cooperative, healthy appearing, comfortable and no acute distress Orientation/consciousness: patient oriented x3 HENMT Head: Yes normocephalic Ears: hearing grossly normal bilaterally General nose exam: Normal external nose present Mouth: Normal oral and palatal mucosa present and oropharynx normal Throat: Yes posterior oropharynx normal Eyes General: appearance normal, both eyes and all related structures Conjunctivae: conjunctivae normal Neck Neck: Yes full ROM and Yes no lymphadenopathy Resp Effort & Inspection: normal respiratory effort Auscultation: clear to auscultation bilaterally, no crackles, no rales, no rhonchi and wheezes expiratory wheezes, left lower and right lower Cardio Rate: regular rate Rhythm: regular rhythm Skin General skin exam: no rashes or lesions noted Neuro General: patient oriented x3 Gait exam (Neuro): Normal gait present Extrem General: Yes normal to inspection, Yes full ROM and No edema Psych Affect: normal affect Attitude: cooperative Insight: Good insight present (Psych) Judgement: Good judgement present (Psych) Assessment and Plan Assessment & Plan (1) Cough: Code(s): R05.9 - Cough, unspecified Plan: Patient has been having a cough since Saturday without any fevers. Sent patient for viral testing. Advised to use [id number] cough medicines and sent prescription for benzonatate. If coughing persists or begins to have a fever advised to reach out to the office as he may need a chest x-ray. (2) Asthma: Code(s): J45.909 - Unspecified asthma, uncomplicated Plan: Continue on current med regimen and follow up in 3 months. (3) Tobacco abuse: Code(s): Z72.0 - Tobacco use Plan: Strongly advised to stop smoking! (4) Back pain: Code(s): M54.9 - Dorsalgia, unspecified Plan: Feels his back pain has been improving with the lidocaine patches and Flexeril. He will call to schedule physical therapy when he has more time and follow up as needed for this concern. Plan This note was constructed using voice recognition software. While every effort has been made to ensure accuracy and silver miner blasting, still areas may have been included sometimes these areas may affect the content or meeting of the given symptoms. Total time spent caring for the patient today was 25 minutes. This includes time spent before the visit reviewing the chart, time spent during the visit, and time spent after the visit and documentation. Orders: Orders Hemoglobin A1c Today Z00.00 - Encounter for general adult medical examination without abnormal findings Free T4 (Free Thyroxine) Today Z00.00 - Encounter for general adult medical examination without abnormal findings SARS-CoV2/FLU/RSV Today R05.9 - Cough, unspecified Lipid Panel Today Z00.00 - Encounter for general adult medical examination without abnormal findings Vitamin B12 and Folate Today Z00.00 - Encounter for general adult medical examination without abnormal findings Vitamin D 25-OH (D2 and D3) Today Z00.00 - Encounter for general adult medical examination without abnormal findings TSH reflex Free T4 Today Z00.00 - Encounter for general adult medical examination without abnormal findings Medications: New benzonatate 150 mg PO BID PRN 14 caps 0RF cough Refilled cyclobenzaprine 10 mg PO TID PRN 10 tabs 0RF pain trazodone 150 mg PO BEDTIME 90 tabs 0RF meloxicam 15 mg PO DAILY 14 tabs 0RF fluticasone propionate 44 mcg/actuation 1 puff inhalation BID 10.6 grams 2RF Coding Level of Care Code Est Pt Level 4 (93881) Diagnoses Cough R05.9 Asthma J45.909 Tobacco abuse Z72.0 Back pain M54.9
== END 2024-06-17 11:01 | disposition home or self-care (01) ==
PROVIDERS: PCP Internal Medicine
DX: R05.9 Cough, unspecified (principal); J45.909 Unspecified asthma, uncomplicated; Z72.0 Tobacco use; M54.9 Dorsalgia, unspecified

== ENCOUNTER 2024-06-17 10:34 | Outpatient (REF) | payer OTHER, SELFPAY ==
[2024-06-17 11:32] LABS: Estimated Average Glucose 100 mg/dL; Hemoglobin A1c % 5.1 % (<6.0)
[2024-06-17 11:53] LABS: Cholesterol 180 mg/dL (<200); HDL Cholesterol 83 mg/dL (>40); LDL Cholesterol Calculated 85 mg/dL (<100); Triglycerides 60 mg/dL (<150)
[2024-06-17 12:00] LABS: Free T4 (Free Thyroxine) 0.92 ng/dL (0.71-1.85); TSH reflex Free T4 1.31 uIU/mL (0.32-4.0)
[2024-06-17 12:21] LABS: Folate 8.2 ng/mL (> or = 4.0); Vitamin B12 244 pg/mL (200-900)
[2024-06-17 12:29] LABS: Influenza A PCR NEGATIVE (Negative); Influenza B PCR NEGATIVE (Negative); Resp Syncy Virus RNA Qual PCR NEGATIVE (Negative); SARS COV2 PCR INHOUSE NEGATIVE (Negative)
[2024-06-20 17:19] LABS: Vitamin D 25-OH, D2 <4 ng/mL; Vitamin D 25-OH, D3 31 ng/mL; Vitamin D 25-OH, Total 31 ng/mL (30-100)
== END 2024-06-17 10:35 | disposition home or self-care (01) ==
LOC: HO.LAB 10:34
PROVIDERS: PCP Internal Medicine
DX: R05.9 Cough, unspecified (principal); J45.909 Unspecified asthma, uncomplicated; M54.9 Dorsalgia, unspecified; Z72.0 Tobacco use; Z00.00 Encounter for general adult medical examination without abnormal findings
CPT/HCPCS: 0241U; 80061; 82306; 82607; 82746; 83036; 84439; 84443; 99212

== ENCOUNTER 2024-06-26 18:33 | Emergency (ER) | payer OTHER, SELFPAY ==
[2024-06-26 18:48] VITALS: BP 127/96; BP 148/90; PULSE 76; PULSE 84; RESP 18; TEMP 36.6; O2SAT 92; O2SAT 95; BMI 22.2
--- NOTE | 2024-06-26 19:08 | ED.GENADULT ---
HPI - General Adult General Chief complaint: ETOH/Substance Use Stated complaint: ETOH Time Seen by Provider: 06/26/24 19:08 Source: patient and EMS Mode of arrival: EMS Limitations: no limitations History of Present Illness ED Provider: Ivory Dos Santos PA-C HPI narrative: Patient is a 53 year old assigned male at with a history of asthma, tobacco use, and alcohol abuse presenting to the emergency department today with alcohol intoxication. Patient states that he was on the side walk after drinking 10 sleeves of vodka and was forced to come here. Patient denies any dizziness, lightheadedness, abdominal pain, nausea, vomiting, fever, chills, blurry vision, double vision, loss of vision, chest pain, difficulty breathing, shortness of breath, back pain, night sweats, pain with urination, increased urinary frequency, increased urinary urgency, blood in his urine or stool, syncope or a near syncopal episode, recent trauma or falls, bowel incontinence, bladder incontinence, or any other complaints at this time. Relieving factors: none Exacerbating factors: none Associated symptoms: denies other symptoms Treatments prior to arrival: none Related Data Home Medications ?Medication ?Instructions ?Recorded ?Confirmed buprenorphine 8 mg-naloxone 2 mg 10 mg sublingual BID 03/01/22 06/17/24 sublingual film (Suboxone) buspirone 10 mg tablet 10 mg PO BID 03/01/22 06/17/24 sertraline 50 mg tablet 50 mg PO BEDTIME 03/01/22 06/17/24 Previous Rx's ?Medication ?Instructions ?Recorded albuterol sulfate 90 mcg/actuation 1 inh inhalation QID PRN shortness 11/28/23 aerosol inhaler (Ventolin HFA) of breath or wheezing #8.5 grams lidocaine 5 % topical patch 1 patch topical DAILY pain #15 ea 11/28/23 pantoprazole 40 mg tablet,delayed 40 mg PO DAILY #14 tabs 11/28/23 release nicotine 21 mg/24 hr daily 1 patch transdermal DAILY #28 ea 04/22/24 transdermal patch benzonatate 150 mg capsule 150 mg PO BID PRN cough #14 caps 06/17/24 cyclobenzaprine 10 mg tablet 10 mg PO TID PRN pain #10 tabs 06/17/24 fluticasone propionate 44 1 puff inhalation BID #10.6 grams 06/17/24 mcg/actuation HFA aerosol inhaler meloxicam 15 mg tablet 15 mg PO DAILY #14 tabs 06/17/24 trazodone 150 mg tablet 150 mg PO BEDTIME #90 tabs 06/17/24 Allergies Allergy/AdvReac Type Severity Reaction Status Date / Time No Known Allergies Allergy Verified 06/26/24 18:50 Review of Systems Constitutional: Constitutional: Reports no additional constitutional complaints, Denies chills, Denies fever(s) and Denies night sweats Eyes: Eyes: Reports no additional eye complaints, Denies blurry vision, Denies change in vision, Denies diplopia, Denies eye discharge, Denies loss of vision and Denies eye pain ENT: Denies dizziness Cardiovascular: Cardiovascular: Reports no additional cardiovascular complaints, Denies chest pain, Denies lightheadedness, Denies Loss of Consciousness and Denies dyspnea Respiratory: Respiratory: Reports no additional respiratory complaints and Denies dyspnea Gastrointestinal: Gastrointestinal: Reports no additional gastrointestinal complaints, Denies abdominal pain, Denies melena, Denies hematochezia, Denies change in bowel habits and Denies change in stool character Genitourinary: Genitourinary: Reports no additional male genitourinary complaints, Denies hematuria, Denies oliguria, Denies difficulty urinating, Denies dysuria, Denies urinary frequency, Denies urinary hesitancy, Denies urinary incontinence and Denies urinary urgency Musculoskeletal: Musculoskeletal: Reports no additional musculoskeletal complaints, Denies numbness and Denies tingling Neurologic: Denies dizziness, Denies loss of vision, Denies numbness and Denies tingling Psychiatric: Psychiatric: Reports no additional psychiatric complaints Endocrine: Endocrine: Reports no additional endocrine complaints Hematologic/Lymphatic: Hematologic/Lymphatic: Reports no additional hematologic/lymphatic complaints Allergic/Immunologic: Allergic/Immunologic: Reports no additional allergic/immunologic complaints PMFSH Past Medical History Attestation statement: The following information was validated with the patient. Source: old records reviewed and nursing notes reviewed Medical History History of fracture of clavicle No known health problems Surgical History History of hernia surgery History of bunionectomy Family History Family History Sister Mental health disorder Social History Social History Housing: Apartment Alcohol intake: current Alcohol intake frequency: 3 or more drinks per day Alcohol type: hard liquor Patient Tobacco Use Status: Current everyday Tobacco user Tobacco use type: Cigarette Cigarette Packs Per Day: 0.5 Cigarettes Per Day: 10 e-Cigarette/Vaping Use: Never Used Second Hand Smoke Exposure: Yes Advance Directives: No Advance Directives Information Provided: No Do you have a plan to hurt others: No Plan service: No Current occupational status: employed Cognitive needs: No Hearing needs: No Vision needs: No Physical Exam ED Vital Signs: Vital Signs - 24 hr 06/26/24 18:48 Temperature 97.9 F Pulse Rate 76 Respiratory Rate 18 Blood Pressure 127/96 H Pulse Oximetry 92 Oxygen Delivery Method Room Air BMI result Body Mass Index 22.2 Const General: cooperative, no acute distress, alert and awake Nutritional Appearance: well nourished Orientation/consciousness: patient oriented x3 Limitations: no limitations HENMT Head: Yes normal to inspection and Yes atraumatic Ears: hearing grossly normal bilaterally and external ears normal General nose exam: Normal external nose present, no nasal discharge noted and no epistaxis Face and sinus: Yes normal facial exam, No abrasion and No laceration Mouth: Normal oral and palatal mucosa present, no drooling and no muffled voice Eyes General: appearance normal, both eyes and all related structures Periorbital: periorbital findings normal Eyelids: Yes eyelids normal Conjunctivae: conjunctivae normal Pupils: Equal, round and reactive pupils present EOM: EOMs intact bilaterally Neck Neck: Yes normal visual inspection, Yes full ROM and Yes no lymphadenopathy Chest Chest palpation & inspection: normal inspection of the chest Resp Effort & Inspection: normal respiratory effort and able to speak in complete sentences GI Inspection: Yes normal to inspection Neuro General: patient oriented x3 and moves all extremities Cranial nerves: Yes Equal, round and reactive pupils present Cognition (Neuro): normal cognition Extrem General: Yes normal to inspection, Yes full ROM and Yes capillary refill normal Psych Appearance: grossly normal Mental Status: mental status grossly normal Affect: normal affect Attitude: cooperative Thought process: Normal thought process present Thought content: Normal thought content present Insight: Good insight present (Psych) Medical Decision Making Medical Decision Making MDM Narrative: Patient is a 53 year old assigned male at with a history of asthma, tobacco use, and alcohol abuse presenting to the emergency department today with alcohol intoxication. Patient's physical exam showed an obviously intoxicated male but was otherwise unremarkable. I explained my physical exam findings to the patient. I answered all questions asked by the patient. Patient remained in the department under physician observation until he was clinically sober. Upon re-evaluation the patient was of sound mind and able to ambulate appropriately. Observation care revealed the the patient does not meet medical necessity for hospitalization. Final disposition discussed with the patient who verbalized understanding and agreement. Patient completed observation care at [time], total time spent in observation care was 2 hours and 13 minutes. Differential Diagnosis Differential Diagnoses: The differential diagnosis associated with the presentation includes Alcohol intoxication Alcohol use Alcohol abuse Admission/Observation Consideration of admission/observation: Escalation of care including admission/observation considered Patient would have been admitted to the hospital had his clinical presentation warranted hospital admission. Independent Historian Clinical information obtained from an independent historian. History obtained from or confirmed by: EMS (EMS provided additional history and confirmed the history provided by the patient.) Discharge Plan Discharge Clinical Impression: Alcoholic intoxication Patient Disposition: Home, Self-Care Instructions: Alcohol Intoxication (ED) Additional Instructions: Please consider refraining from alcohol use. Follow up with your primary care provider. Return to the emergency department immediately if you develop any dizziness, shortness of breath, difficulty breathing, chest pain, blurry vision, loss of vision, nausea, vomiting, abdominal pain, fever, chills, back pain, or any other complaints. Prescriptions: No Action buspirone 10 mg tablet 10 mg PO BID sertraline 50 mg tablet 50 mg PO BEDTIME buprenorphine-naloxone [Suboxone] 8-2 mg film 10 mg sublingual BID nicotine 21 mg/24 hr patch 24 hour 1 patch transdermal DAILY Qty: 28 1RF lidocaine 5 % adhesive patch,medicated 1 patch topical DAILY Qty: 15 0RF Rx Instructions: leave on most painful area for up to 12 hrs albuterol sulfate [Ventolin HFA] 90 mcg/actuation HFA aerosol inhaler 1 inh inhalation QID PRN (Reason: shortness of breath or wheezing) Qty: 8.5 1RF pantoprazole 40 mg tablet,delayed release (DR/EC) 40 mg PO DAILY Qty: 14 0RF cyclobenzaprine 10 mg tablet 10 mg PO TID PRN (Reason: pain) Qty: 10 0RF benzonatate 150 mg capsule 150 mg PO BID PRN (Reason: cough) Qty: 14 0RF trazodone 150 mg tablet 150 mg PO BEDTIME Qty: 90 0RF meloxicam 15 mg tablet 15 mg PO DAILY Qty: 14 0RF fluticasone propionate 44 mcg/actuation HFA aerosol inhaler 1 puff inhalation BID Qty: 10.6 2RF Referrals: [facility] [place] Family Medicine [Provider Group] (Call to establish and follow up with a primary care provider. If you already have a primary care provider, please follow up with them.) [facility] [place] Primary Care, [facility] [Provider Group] (Call to establish and follow up with a primary care provider. If you already have a primary care provider, please follow up with them.) [facility] [place] Primary Care,Hé[facility] [Provider Group] (Call to establish and follow up with a primary care provider. If you already have a primary care provider, please follow up with them.) Print Language: Spanish
--- NOTE | 2024-06-26 19:38 | PC.NURSE ---
PT resting quietly. Reports he drinks about 10 shots a day and today drank 15. He denies pain- CIWA 0. Plan is to metabolize to freedom. PT requested and provided sandwich and gingerale.
[2024-06-26 21:20] VITALS: BP 114/83; PULSE 85; RESP 16; TEMP 36.6; O2SAT 98
[2024-06-26 21:43] VITALS: BP 114/83; PULSE 85; RESP 16; TEMP 36.6; O2SAT 98
== END 2024-06-26 21:44 | disposition home or self-care (01) ==
PROVIDERS: Emergency Provider Internal Medicine
DX: F10.120 Alcohol abuse with intoxication, uncomplicated (principal); Y90.9 Presence of alcohol in blood, level not specified; F11.20 Opioid dependence, uncomplicated; F17.210 Nicotine dependence, cigarettes, uncomplicated; Z79.899 Other long term (current) drug therapy
CPT/HCPCS: 99284

== ENCOUNTER 2024-08-28 17:29 | Emergency (ER) | payer OTHER, SELFPAY ==
--- NOTE | ~2024-08-28 | CT_ITS ---
EXAMINATION: CT HEAD WITHOUT CONTRAST CT CERVICAL SPINE WITHOUT CONTRAST CLINICAL INFORMATION: Trauma. Intoxicated. Head injury. COMPARISON: None available. TECHNIQUE: Contiguous axial imaging was performed from the skull base to vertex without intravenous administration of contrast. Contiguous axial imaging was performed from the upper chest through the skull base without intravenous administration of contrast. Coronal and sagittal reformats were obtained at the acquisition workstation. This CT examination was performed using dose optimization techniques as appropriate, variously including the following: *Automated exposure control. *Adjustment of mA and/or kV according to patient size (this includes techniques or standardized protocols for targeted exams where dose is matched to indication/reason for exam; i.e. extremities or head). *Use of iterative reconstruction technique. DLP: 1129 mGy-cm FINDINGS: Head: There is no evidence of acute intracranial hemorrhage or edematous territorial infarction. Esqueda-white matter differentiation is preserved. Scattered and partially confluent hypoattenuation in the periventricular and deep white matter are consistent with moderate microangiopathy. Proportional prominence of the ventricles and sulcal spaces without evidence of obstructive hydrocephalus. No abnormal mass effect or midline shift. No extra-axial fluid collections. Small subgaleal hematoma along the posterior vertex, measuring up to 0.4 cm in depth. No associated acute osseous abnormalities. Mild mucosal thickening of the paranasal sinuses. Mild layering fluid within the left maxillary sinus. The mastoid air cells and middle ear cavities are clear. Cervical Spine: The atlantooccipital and atlantoaxial articulations remain well aligned. Straightening of the normal cervical lordosis. Otherwise, there is anatomic alignment of the vertebral bodies and posterior elements. No evidence of acute fracture or subluxation. The vertebral body heights are maintained. Advanced degenerative disc disease at C6-C7. Moderate degenerative disc disease from C3-C6. There is no prevertebral soft tissue swelling. The thyroid gland and remaining cervical soft tissues are within normal limits. The lung apices demonstrate no abnormalities. CT/CT cervical spine wo IV con IMPRESSION: 1. No evidence of acute intracranial hemorrhage or edematous territorial infarction. 2. No evidence of acute fracture or traumatic subluxation of the cervical spine. 3. Moderate underlying microangiopathy and generalized cerebral volume loss. 4. Small posterior scalp hematoma. No associated osseous abnormalities. Electronically signed by: Calvin Kennedy DO 08/28/2024 07:44 PM EST
--- NOTE | 2024-08-28 17:34 | ED_ITS ---
HPI - General Adult General Chief complaint: ETOH/Substance Use Stated complaint: ETOH, FELL, LAC PER EMS Time Seen by Provider: 08/28/24 17:34 History of Present Illness ED Provider: Josué WELLS narrative: The patient is a 53-year-old male who was brought to the hospital after being found on the street having fallen, possibly having slipped on ice. He seemed intoxicated. He had obvious bleeding from a scalp wound. The patient has a history of previous emergency room visits for alcohol intoxication. Related Data Home Medications ?Medication ?Instructions ?Recorded ?Confirmed buprenorphine 8 mg-naloxone 2 mg 10 mg sublingual BID 03/01/22 06/17/24 sublingual film (Suboxone) buspirone 10 mg tablet 10 mg PO BID 03/01/22 06/17/24 sertraline 50 mg tablet 50 mg PO BEDTIME 03/01/22 06/17/24 Previous Rx's ?Medication ?Instructions ?Recorded albuterol sulfate 90 mcg/actuation 1 inh inhalation QID PRN shortness 11/28/23 aerosol inhaler (Ventolin HFA) of breath or wheezing #8.5 grams lidocaine 5 % topical patch 1 patch topical DAILY pain #15 ea 11/28/23 pantoprazole 40 mg tablet,delayed 40 mg PO DAILY #14 tabs 11/28/23 release nicotine 21 mg/24 hr daily 1 patch transdermal DAILY #28 ea 04/22/24 transdermal patch benzonatate 150 mg capsule 150 mg PO BID PRN cough #14 caps 06/17/24 cyclobenzaprine 10 mg tablet 10 mg PO TID PRN pain #10 tabs 06/17/24 fluticasone propionate 44 1 puff inhalation BID #10.6 grams 06/17/24 mcg/actuation HFA aerosol inhaler meloxicam 15 mg tablet 15 mg PO DAILY #14 tabs 06/17/24 trazodone 150 mg tablet 150 mg PO BEDTIME #90 tabs 06/17/24 Allergies Allergy/AdvReac Type Severity Reaction Status Date / Time No Known Allergies Allergy Verified 08/28/24 17:51 Review of Systems 2 Review of Systems: Yes all other systems are reviewed and are negative PMFSH Past Medical History Medical History History of fracture of clavicle No known health problems Surgical History History of hernia surgery History of bunionectomy Family History Family History Sister Mental health disorder Social History Social History Housing: Apartment Alcohol intake: current Alcohol intake frequency: 3 or more drinks per day Alcohol type: hard liquor Patient Tobacco Use Status: Current everyday Tobacco user Tobacco use type: Cigarette Cigarette Packs Per Day: 0.5 Cigarettes Per Day: 10 e-Cigarette/Vaping Use: Never Used Second Hand Smoke Exposure: Yes Advance Directives: No Advance Directives Information Provided: No service: No Current occupational status: employed Cognitive needs: No Hearing needs: No Vision needs: No Physical Exam ED Vital Signs: Vital Signs - 24 hr 08/28/24 17:48 08/28/24 19:16 08/29/24 00:00 Temperature 98.2 F 97.8 F 98.1 F Pulse Rate 90 91 56 Respiratory Rate 18 16 16 Blood Pressure 115/86 110/77 100/65 Pulse Oximetry 96 97 96 Oxygen Delivery Method Room Air Room Air Room Air 08/29/24 00:57 Temperature 98.1 F Pulse Rate 56 Respiratory Rate 16 Blood Pressure 100/65 Pulse Oximetry 96 Oxygen Delivery Method Room Air BMI result Body Mass Index 24.2 Const Other: the patient is a slim 53-year-old male Who was somnolent but responsive to verbal stimuli. He is somewhat disheveled. There was obvious blood in the hair on the top of his scalp. HENID Other: There is of 4 cm laceration to the vertex of the scalp. This is the mildly irregular laceration. It does not extend to the galea. No significant ongoing bleeding. No raccoon eyes. No Rivera sign. No signs of facial trauma. Eyes General: appearance normal, both eyes and all related structures Conjunctivae: conjunctivae normal Pupils: Equal, round and reactive pupils present Neck Other: No apparent C-spine tenderness posteriorly. 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 Resp Effort & Inspection: normal respiratory effort Auscultation: clear to auscultation bilaterally Cardio Rate: regular rate Rhythm: regular rhythm Heart sounds: S1 normal heart sound present and S2 normal heart sound present GI Other: no apparent abdominal tenderness Back/Spine/Pelvis Other: No apparent step-off or tenderness to the vertebral spine. Skin Other: there is a 4 cm scalp laceration. Otherwise the skin was pale and dry. Neuro Other: The patient was somnolent but arousable to verbal stimuli or gentle tactile stimuli. He spoke with slurred speech and seemed intoxicated. Eye movements were intact. Face was symmetrical. Tone in his extremities was symmetrical. Ultimately he was sufficiently sober to be able to walk with a steady gait. Cranial nerves: Yes Equal, round and reactive pupils present Extrem Other: No signs of injury to the extremities Medications Administered Discontinued Medications Generic Name Dose Route Start Last Admin Trade Name Freq PRN Reason Stop Dose Admin Acetaminophen 975 mg 08/29/24 00:33 08/29/24 00:43 Acetaminophen 325 Mg Tablet PO 08/29/24 00:34 975 mg ONCE ONE Administration Lidocaine HCl 10 ml 08/28/24 18:48 08/28/24 18:53 Lidocaine Hcl 1 % Mpf 5 Ml Vial INFILTRATI 08/28/24 18:49 10 ml ONCE ONE Administration Procedures Laceration Laceration 1: Site: scalp Size (cm): 4 Description: irregular Depth: simple, single layer Local Anesthetic: lidocaine 1% Amount of anesthesia used (mL): 5 Skin layer closed with: other (loyda) Number of sutures: 6 Medical Decision Making Medical Decision Making [facility] Narrative: the patient is a 53-year-old male who seems to be an alcoholic. He has had previous emergency room visits for significant alcohol intoxication. He seems to have had a slip and fall injury while walking on the streets. He has a scalp laceration. No obvious apparent other injuries. Given his intoxication and his somnolence he was sent for head CT and a cervical spine CT. These did not show any dangers internal injuries or fractures. The patient's scalp laceration was closed with 6 loyda. Good wound approximation was achieved as was hemostasis. The patient was initially insisting on being discharged while he was still quite intoxicated. He was ultimately prevailed upon to stay in the emergency room. He slept for several hours. In the meantime I had tried to contact someone who might be able to pick him up. No one called back. Ultimately the patient was awake and much more alert and was steady on his feet. He says he lives only a few blocks from the hospital and requested discharge. I did not feel that discharge at this point seemed unsafe and so he was discharged with instructions to get the loyda removed at his PCPs office in 10 days. He was advised to be careful with alcohol in the future. Lab Data 08/28/24 19:23 08/28/24 19:23 Labs: Lab Results 08/28/24 Range/Units 19:23 WBC 6.2 (4.8-10.8) X10*3/uL RBC 4.46 L (4.60-5.80) X10*6/uL Hgb 14.4 (14.0-18.0) g/dl Hct 42.2 (42.0-52.0) % MCV 94.6 (80.0-98.0) fL MCH 32.3 (27.0-33.0) pg MCHC 34.1 (31.0-36.0) g/dl RDW 13.5 (11.0-16.0) % Plt Count 219 (160-400) X10*3/uL MPV 8.9 L (9.4-12.4) fL Immature Gran % (Auto) 0.3 (0.0-0.4) % Neut % (Auto) 56.2 (45-73) % Lymph % (Auto) 33.2 (20-40) % Taliaferro % (Auto) 7.4 (2-11) % Eos % (Auto) 1.8 (0-4) % Baso % (Auto) 1.1 (0-2) % Lymph # (Auto) 2.1 (1.2-4.9) X10*3/uL Taliaferro # (Auto) 0.5 (0.1-1.2) X10*3/uL Eos # (Auto) 0.1 (0.0-0.4) X10*3/uL Baso # (Auto) 0.1 (0.0-0.2) X10*3/uL Abs Immat Gran (auto) 0.02 (0.00-0.03) X10*3/uL Absolute Neuts (auto) 3.5 (2.0-8.3) x10*3/uL Absolute Nucleated RBC 0.000 (0.0-0.012) X10*3/uL Nucleated RBC % (auto) 0.0 (0.0-0.2) /100WBC PT 10.8 L (10.9-12.4) SEC INR 0.9 (0.9-1.1) Sodium 147 H (135-145) mmol/L Potassium 3.8 (3.3-5.1) mmol/L Chloride 112 H (96-108) mmol/L Carbon Dioxide 28 (22-29) mmol/L Anion Gap 11 L (12-20) BUN 6 L (9-16) mg/dL Creatinine 0.81 (0.5-1.4) mg/dL Estim Creat Clear Calc 92.9 Estimated GFR > 60 Random Glucose 96 (60-115) mg/dL Calcium 9.2 (8.4-10.2) mg/dL Total Bilirubin 0.3 (0.0-1.0) mg/dL Direct Bilirubin 0.1 (0.0-0.5) mg/dL AST 34 (5-37) U/L ALT 18 (0-40) U/L Alkaline Phosphatase 71 (39-117) U/L Total Protein 6.9 (6.5-8.0) g/dL Albumin 4.4 (3.5-5.0) g/dL Ethyl Alcohol 311 H* mg/dL Discharge Plan Discharge Clinical Impression: Laceration of scalp, Alcohol intoxication, Fall Patient Disposition: Home, Self-Care Instructions: Laceration (ED) Additional Instructions: You have a laceration on the back of your scalp. This was closed with 6 loyda. Loyda should be removed in about 10 days. You may go to an urgent care center or your primary care doctor's office or return to the emergency room for staple removal. Keep the wound clean and dry. You may shower. Scalp wounds very rarely get infected. If you have any concern about infection return to the emergency room. Your alcohol level today was 311. This is a fairly high level. Please be careful with alcohol use in the future. Please plan on following up with your primary care doctor in 10 days for staple removal. Return to the emergency room if significantly worse. Prescriptions: No Action buspirone 10 mg tablet 10 mg PO BID sertraline 50 mg tablet 50 mg PO BEDTIME buprenorphine-naloxone [Suboxone] 8-2 mg film 10 mg sublingual BID nicotine 21 mg/24 hr patch 24 hour 1 patch transdermal DAILY Qty: 28 1RF lidocaine 5 % adhesive patch,medicated 1 patch topical DAILY Qty: 15 0RF Rx Instructions: leave on most painful area for up to 12 hrs albuterol sulfate [Ventolin HFA] 90 mcg/actuation HFA aerosol inhaler 1 inh inhalation QID PRN (Reason: shortness of breath or wheezing) Qty: 8.5 1RF pantoprazole 40 mg tablet,delayed release (DR/EC) 40 mg PO DAILY Qty: 14 0RF cyclobenzaprine 10 mg tablet 10 mg PO TID PRN (Reason: pain) Qty: 10 0RF benzonatate 150 mg capsule 150 mg PO BID PRN (Reason: cough) Qty: 14 0RF trazodone 150 mg tablet 150 mg PO BEDTIME Qty: 90 0RF meloxicam 15 mg tablet 15 mg PO DAILY Qty: 14 0RF fluticasone propionate 44 mcg/actuation HFA aerosol inhaler 1 puff inhalation BID Qty: 10.6 2RF Interventions: ED Discharge Assessment Last Done: 08/29/24 00:57 Discharge Date/Time: 08/29/24 01:00 Print Language: Cymraes
[2024-08-28 17:48] VITALS: BP 115/86; PULSE 90; RESP 18; TEMP 36.8; O2SAT 96; BMI 24.2
[2024-08-28] MEDS: Lidocaine HCl 1 % MPF 5 ML VIAL 10 ML INFILTRATI (18:53)
[2024-08-28 19:16] VITALS: BP 110/77; PULSE 91; RESP 16; TEMP 36.6; O2SAT 97
--- NOTE | 2024-08-28 19:26 | PC.NURSE ---
This RN assumed pt care @ 1900. Pt sitting up in bed quietly, no signs of distress Pt denies pain Plan of care ongoing.
[2024-08-28 19:27] LABS: MANUAL DIFF FLAG NO
[2024-08-28 19:28] LABS: Basophils Absolute Auto 0.1 X10*3/uL (0.0-0.2); Basophils Percent Auto 1.1 % (0-2); Eosinophils Absolute Auto 0.1 X10*3/uL (0.0-0.4); Eosinophils Percent Auto 1.8 % (0-4); Hematocrit 42.2 % (42.0-52.0); Hemoglobin 14.4 g/dl (14.0-18.0); Imm Gran Abs Auto 0.02 X10*3/uL (0.00-0.03); Imm Gran Pct Auto 0.3 % (0.0-0.4); Lymphocytes Absolute Auto 2.1 X10*3/uL (1.2-4.9); Lymphocytes Percent Auto 33.2 % (20-40); Mean Corpuscular HGB Conc 34.1 g/dl (31.0-36.0); Mean Corpuscular Hemoglobin 32.3 pg (27.0-33.0); Mean Corpuscular Volume 94.6 fL (80.0-98.0); Mean Platelet Volume 8.9 fL (9.4-12.4); Monocytes Absolute Auto 0.5 X10*3/uL (0.1-1.2); Monocytes Percent Auto 7.4 % (2-11); Neutrophils Absolute Auto 3.5 x10*3/uL (2.0-8.3); Neutrophils Percent Auto 56.2 % (45-73); Platelet Count 219 X10*3/uL (160-400); Red Blood Count 4.46 X10*6/uL (4.60-5.80); Red Cell Distribution Width 13.5 % (11.0-16.0); White Blood Count 6.2 X10*3/uL (4.8-10.8)
[2024-08-28 19:34] LABS: INTERNATIONAL NORM RATIO 0.9 (0.9-1.1); Prothrombin Time 10.8 SEC (10.9-12.4)
[2024-08-28 19:45] LABS: Alanine Aminotransferase 18 U/L (0-40); Albumin Level 4.4 g/dL (3.5-5.0); Alkaline Phosphatase 71 U/L (39-117); Anion Gap 11 (12-20); Aspartate Amino Transferase 34 U/L (5-37); Bilirubin Direct 0.1 mg/dL (0.0-0.5); Bilirubin Total 0.3 mg/dL (0.0-1.0); Blood Urea Nitrogen 6 mg/dL (9-16); Calcium 9.2 mg/dL (8.4-10.2); Carbon Dioxide 28 mmol/L (22-29); Chloride 112 mmol/L (96-108); Creatinine Clr Calc Pharmacy 92.9; Estimated Glomerular Filt Rate > 60; Ethanol 311 mg/dL; Glucose Random 96 mg/dL (60-115); Potassium 3.8 mmol/L (3.3-5.1); Sodium 147 mmol/L (135-145); Total Protein 6.9 g/dL (6.5-8.0)
[2024-08-29] VITALS: BP 100/65; PULSE 56; RESP 16; TEMP 36.7; O2SAT 96
[2024-08-29] MEDS: Acetaminophen 325 MG TABLET 975 MG PO (00:43)
--- NOTE | 2024-08-29 00:49 | PC.NURSE ---
Pt medicated per [facility] Plan of care ongoing.
[2024-08-29 00:57] VITALS: BP 100/65; PULSE 56; RESP 16; TEMP 36.7; O2SAT 96
== END 2024-08-29 01:00 | disposition home or self-care (01) ==
PROVIDERS: Emergency Provider Emergency Medicine
DX: F10.120 Alcohol abuse with intoxication, uncomplicated (principal); Y90.8 Blood alcohol level of 240 mg/100 ml or more; S01.01XA Laceration without foreign body of scalp, initial encounter; W18.30XA Fall on same level, unspecified, initial encounter; F17.210 Nicotine dependence, cigarettes, uncomplicated; Y93.01 Activity, walking, marching and hiking; Y92.414 Local residential or business street as the place of occurrence of the external cause; Y99.9 Unspecified external cause status
CPT/HCPCS: 12002; 36415; 70450; 72125; 80048; 80076; 80307; 85025; 85610; 99284; J2003

== ENCOUNTER 2024-09-08 10:04 | Outpatient (AMB) | payer OTHER, SELFPAY ==
--- NOTE | 2024-09-08 10:06 | MHC.PC.OV ---
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 Spooler: Not Required per policy Accompanied by: Self / Same As Patient Allergies No Known Allergies Allergy (Verified 09/08/24 10:07) Medication List - Last Reconciled 09/08/24 by Ashley Wilson PA-C albuterol sulfate 90 mcg/actuation (Ventolin HFA) 1 inh inhalation QID PRN benzonatate 150 mg PO BID PRN buprenorphine-naloxone 8-2 mg (Suboxone) 10 mg sublingual BID buspirone 10 mg PO BID cyclobenzaprine 10 mg PO TID PRN fluticasone propionate 110 mcg/actuation 1 puff inhalation BID lidocaine 5% 1 patch topical DAILY meloxicam 15 mg PO DAILY nicotine 1 patch transdermal DAILY pantoprazole 40 mg PO DAILY sertraline 50 mg PO BEDTIME trazodone 150 mg PO BEDTIME Tobacco use date assessed: 09/08/24 Dental Screening Dental Screen Date: 11/28/23 [facility] 08/29/ staple removal HPI Details 53-year-old male with past medical history of tobacco abuse, alcohol abuse, asthma last seen May 2024 coming in for hospital discharge follow up. In review of the notes patient was seen in [facility] ED 08/28/2024 [address] being found on the street having fallen appeared to be intoxicated. Patient had laceration of the scalp closed with 6 loyda. Patient was also seen for acute alcohol intoxication 06/26/2024 in the ER. Patient has been working on smoking cessation and states he did use the nicotine patch but it made him nauseous as he also smokes cigarettes with the patch on. He continues to use his albuterol inhaler multiple times per week and sometimes multiple times per day. Denies any pain, drainage or redness in the scalp area around the laceration. Has no other concerns today [facility] Medical History History of fracture of clavicle No known health problems Surgical History History of hernia surgery History of bunionectomy Family History Sister Mental health disorder Social History Housing: Apartment Alcohol intake: current Alcohol intake frequency: 3 or more drinks per day Alcohol type: hard liquor Patient Tobacco Use Status: Current everyday Tobacco user Tobacco use type: Cigarette Cigarette Packs Per Day: 0.5 Cigarettes Per Day: 10 e-Cigarette/Vaping Use: Never Used Second Hand Smoke Exposure: Yes service: No Current occupational status: employed Cognitive needs: No Hearing needs: No Vision needs: No Questionnaire Thrive Questionnaire Date Thrive assessed: 11/28/23 Are you currently unemployed and looking for a job?: Yes DANIELLA-7 AMB Questionnaire DANIELLA-7 Date DANIELLA - 7 assessed: 11/28/23 Source: Developed by Drs. Jason Tiwari, Miguelina Ernandez, Trell Howard and colleagues, with an educational teresita from [employer]. Review of Systems Const Denies body aches, Denies chills, Denies fever(s) and Denies poor appetite Eyes Reports no additional complaints ENT Reports no additional complaints Card Denies chest pain, Denies syncope, Denies edema, Denies irregular heart rhythm, Denies lightheadedness and Reports dyspnea (Occasional resolves with inhaler) Resp Denies cough and Reports dyspnea (Occasional resolves with inhaler) GI Denies abdominal pain, Denies nausea and Denies vomiting Reports no additional complaints Musc Reports no additional complaints and Denies abnormal gait Skin/Breast Reports system reviewed and no additional complaints, except as documented Neuro Denies abnormal gait and Denies syncope Psych Reports no additional complaints Physical exam (Primary Care) Vital Signs: Last Vital Signs Pulse 55 09/08/24 10:07 BP 130/70 09/08/24 10:07 Pulse Ox 97 09/08/24 10:07 Oxygen Delivery Method Room Air 09/08/24 10:07 BMI result Body Mass Index 24.2 Tobacco/Smoking Status: Tobacco use Status Tobacco use date assessed 09/08/24 09/08/24 10:12 Patient Tobacco Use Status Current everyday Tobacco 09/08/24 10:12 Tobacco use type Cigarette 09/08/24 10:12 e-Cigarette/Vaping Use Never Used 09/08/24 10:12 Thrive Assessment: Date of Thrive Assessment Date Thrive assessed 11/28/23 09/08/24 10:12 Const General: cooperative, healthy appearing, comfortable and no acute distress Orientation/consciousness: patient oriented x3 HENMT Head: Yes normocephalic Ears: hearing grossly normal bilaterally General nose exam: Normal external nose present Eyes General: appearance normal, both eyes and all related structures Conjunctivae: conjunctivae normal Neck Neck: Yes full ROM and Yes no lymphadenopathy Resp Effort & Inspection: normal respiratory effort Auscultation: clear to auscultation bilaterally (CTA left side), no crackles, no rales, rhonchi right upper and no wheezes Cardio Rate: regular rate Rhythm: regular rhythm Skin Other: Scalp laceration with 6 loyda intact with routine scabbing and healing without any overlying erythema, drainage or warmth Neuro General: patient oriented x3 Gait exam (Neuro): Normal gait present Extrem General: Yes normal to inspection, Yes full ROM and No edema Psych Affect: normal affect Attitude: cooperative Insight: Good insight present (Psych) Judgement: Good judgement present (Psych) Coding Level of Care Code Est Pt Level 4 (70081) Diagnoses Asthma J45.909 Tobacco abuse Z72.0 Alcohol abuse F10.10 Laceration of scalp S01.01XA Assessment & Plan Assessment & Plan (1) Asthma: Code(s): J45.909 - Unspecified asthma, uncomplicated Category: Medical Plan: Patient still using albuterol multiple times per week we will increase fluticasone propionate to 110 mcg continue on b.i.d. scheduling and continue to use albuterol as needed. Follow up in 2 months. Avoid triggers such as allergies and strongly advised to stop smoking. (2) Tobacco abuse: Code(s): Z72.0 - Tobacco use Category: Medical Plan: Smoking cigarettes and the use of tobacco can be harmful. We discussed the importance of stopping and options to aid in smoking cessation. Nicotine replacement therapy was declined today as he has patches at home and states they make him nauseous. Strongly advised to stop smoking. (3) Alcohol abuse: Code(s): F10.10 - Alcohol abuse, uncomplicated Category: Social Hx Plan: Discussed with patient today his last few visits at the ER were due to alcohol intoxication. Patient states he does not have a problem with alcohol and declines any need for services at this time. Advised patient to reach out if this changes. (4) Laceration of scalp: Code(s): S01.01XA - Laceration without foreign body of scalp, initial encounter Category: Medical Plan: Six loyda were successfully removed today. Patient tolerated procedure well and without complication. Laceration is well approximated without any evidence of dehiscence and has routine healing with stage appropriate scabbing. Advised patient to continue to keep the area clean and dry and may wash the area but avoid scrubbing. Plan This note was constructed using voice recognition software. 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 Total time spent caring for the patient today was 20 minutes. This includes time spent before the visit reviewing the chart, time spent during the visit, and time spent after the visit and documentation. Medications: New fluticasone propionate 110 mcg/actuation 1 puff inhalation BID 12 grams 1RF Refilled albuterol sulfate 90 mcg/actuation (Ventolin HFA) 1 inh inhalation QID PRN 8.5 grams 1RF shortness of breath or wheezing meloxicam 15 mg PO DAILY 14 tabs 0RF cyclobenzaprine 10 mg PO TID PRN 20 tabs 0RF pain Discontinued fluticasone propionate 44 mcg/actuation Discontinued Reason: Patient no longer taking 1 puff inhalation BID 10.6 grams 2RF
[2024-09-08 10:07] VITALS: BP 130/70; PULSE 55; O2SAT 97; BMI 24.2
== END 2024-09-08 10:34 | disposition home or self-care (01) ==
DX: J45.909 Unspecified asthma, uncomplicated (principal); Z72.0 Tobacco use; F10.10 Alcohol abuse, uncomplicated; S01.01XA Laceration without foreign body of scalp, initial encounter

== ENCOUNTER → 2024-09-08 10:04 | Outpatient (BNVA) | payer OTHER, SELFPAY | DX: S01.01XD Laceration without foreign body of scalp, subsequent encounter (principal); J45.909 Unspecified asthma, uncomplicated; F10.10 Alcohol abuse, uncomplicated; F17.210 Nicotine dependence, cigarettes, uncomplicated; X58.XXXD Exposure to other specified factors, subsequent encounter; Z48.02 Encounter for removal of sutures; Z91.81 History of falling | CPT/HCPCS: 99212 ==

== ENCOUNTER 2024-09-22 17:48 | Emergency (ER) | payer OTHER, SELFPAY ==
--- NOTE | ~2024-09-22 | CT_ITS ---
CLINICAL HISTORY: change in mental status CT head without contrast Comparison: 08/28/2024 Findings: No intracranial mass, midline shift, hydrocephalus, or acute hemorrhage. Mild chronic ischemic white matter disease without volume loss. No acute process in sinuses or mastoids. No acute bony abnormality. Impression: No acute intracranial process This document has been electronically signed by: Jose Juan David MD on 09/22/2024 19:54:50
[2024-09-22 17:54] VITALS: BP 118/80; PULSE 85; O2SAT 97
[2024-09-22 18:06] VITALS: BP 123/87; PULSE 61; RESP 16; TEMP 36.6; O2SAT 96; BMI 21.9
--- NOTE | 2024-09-22 18:06 | ECG_ITS ---
Test Reason : unresponsive Blood Pressure : / mmHG Vent. Rate : 064 BPM Atrial Rate : 064 BPM P-R Int : 158 ms QRS Dur : 104 ms QT Int : 422 ms P-R-T Axes : 060 -04 031 degrees QTc Int : 435 ms Normal sinus rhythm Moderate voltage criteria for LVH, may be normal variant ( R in aVL , [place] product ) Borderline ECG When compared with ECG of 12-JUN-2024 17:17, No significant change was found Referred By: Elidia Swift Electronically Signed By:KARI ESPARZA MD
--- NOTE | 2024-09-22 18:10 | ED.AMS ---
HPI - Altered Mental Status General Chief Complaint: ETOH/Substance Use Stated Complaint: etoh Time Seen by Provider: 09/22/24 18:05 Source: patient and EMS Mode of arrival: EMS Limitations: other (intoxication) History of Present Illness ED Provider: MARILEE WELLS narrative: 53 yo male with PMH of asthma, depression, ETOH use disorder here from home with intoxication. No reported trauma, he has no SI. He initially didn't wake for staff then abruptly got up and said he had to pee. He is very unsteady and making jokes and dancing. No other history provided just that he drank complaint: intoxication Onset (ago): hour(s) Severity: moderate Consistency of symptoms: unknown Context: alcohol abuse Associated symptoms: denies other symptoms Related Data Home Medications ?Medication ?Instructions ?Recorded ?Confirmed buprenorphine 8 mg-naloxone 2 mg 10 mg sublingual BID 03/01/22 09/08/24 sublingual film (Suboxone) buspirone 10 mg tablet 10 mg PO BID 03/01/22 09/08/24 sertraline 50 mg tablet 50 mg PO BEDTIME 03/01/22 09/08/24 Previous Rx's ?Medication ?Instructions ?Recorded lidocaine 5 % topical patch 1 patch topical DAILY pain #15 ea 11/28/23 pantoprazole 40 mg tablet,delayed 40 mg PO DAILY #14 tabs 11/28/23 release nicotine 21 mg/24 hr daily 1 patch transdermal DAILY #28 ea 04/22/24 transdermal patch benzonatate 150 mg capsule 150 mg PO BID PRN cough #14 caps 06/17/24 trazodone 150 mg tablet 150 mg PO BEDTIME #90 tabs 06/17/24 albuterol sulfate 90 mcg/actuation 1 inh inhalation QID PRN shortness 09/08/24 aerosol inhaler (Ventolin HFA) of breath or wheezing #8.5 grams cyclobenzaprine 10 mg tablet 10 mg PO TID PRN pain #20 tabs 09/08/24 meloxicam 15 mg tablet 15 mg PO DAILY #14 tabs 09/08/24 fluticasone furoate 100 1 inh inhalation DAILY #30 ea 09/15/24 mcg/actuation blister powder for inhalation (Arnuity Ellipta) Allergies Allergy/AdvReac Type Severity Reaction Status Date / Time No Known Allergies Allergy Verified 09/22/24 18:10 Review of Systems Review of Systems: ROS unable to be obtained due to intoxication COUNT INCLUDES THE [facility] Past Medical History Source: old records reviewed Medical History History of fracture of clavicle No known health problems Surgical History History of hernia surgery History of bunionectomy Family History Family History Sister Mental health disorder Social History Social History Housing: Apartment Alcohol intake: current Alcohol intake frequency: 3 or more drinks per day Alcohol type: hard liquor Patient Tobacco Use Status: Current everyday Tobacco user Tobacco use type: Cigarette Cigarette Packs Per Day: 0.5 Cigarettes Per Day: 10 e-Cigarette/Vaping Use: Never Used Second Hand Smoke Exposure: Yes Advance Directives: No Advance Directives Information Provided: No service: No Current occupational status: employed Cognitive needs: No Hearing needs: No Vision needs: No Physical Exam ED Vital Signs: Vital Signs - 24 hr 09/22/24 18:06 Temperature 97.9 F Pulse Rate 61 Respiratory Rate 16 Blood Pressure 123/87 Pulse Oximetry 96 Oxygen Delivery Method Room Air BMI result Body Mass Index 21.9 Appearance: Alert. Oriented X3. No acute distress. ETOH odor, slurred speech intoxicated Eyes: Pupils equal, round and reactive to light. ENT: Pharynx normal. atraumatic other than purple area on tip of nose no blood noted in nares Neck: Normal inspection. Neck supple. CVS: Normal heart rate and rhythm. Pulses normal. Respiratory: No respiratory distress. Breath sounds normal. Abdomen: Soft and non-tender. Skin: Skin warm and dry. Normal skin color. Normal skin turgor. Extremities: No lower extremity edema. No calf ttp Neuro: Oriented X 3. No motor deficit. No sensory deficit. ataxia when he attempts to walk Course Course Course Narrative: already pulled his IV Reevaluation(s) Reevaluation #1: steady gait stable for DC Medical Decision Making Medical Decision Making MDM Narrative: 53 yo male with PMH of asthma, depression, ETOH abuse who comes in from home for ETOH use here with episode of not responding to staff. No trauma reported he is upset he is here he is very intoxicated and cannot ambulate safely has bruise on tip of nose I have ordered CT head to rule out trauma Differential Diagnosis Differential Diagnoses: The differential diagnosis associated with the presentation includes ETOH intoxication Admission/Observation Consideration of admission/observation: Escalation of care including admission/observation considered steady gait refuses to stay, GCS 15 will DC home lipase elevated but has no abd pain to suggest pancreatitis he denies this Lab Data MDM Lab Attestation statement: I reviewed the patient's lab results. 09/22/24 18:09 09/22/24 18:09 Labs: Lab Results 09/22/24 Range/Units 18:09 WBC 6.9 (4.8-10.8) X10*3/uL RBC 4.39 L (4.60-5.80) X10*6/uL Hgb 14.2 (14.0-18.0) g/dl Hct 41.8 L (42.0-52.0) % MCV 95.2 (80.0-98.0) fL MCH 32.3 (27.0-33.0) pg MCHC 34.0 (31.0-36.0) g/dl RDW 13.2 (11.0-16.0) % Plt Count 279 D (160-400) X10*3/uL MPV 8.7 L (9.4-12.4) fL Immature Gran % (Auto) 0.3 (0.0-0.4) % Neut % (Auto) 52.8 (45-73) % Lymph % (Auto) 37.7 (20-40) % [place] % (Auto) 6.4 (2-11) % Eos % (Auto) 1.6 (0-4) % Baso % (Auto) 1.2 (0-2) % Lymph # (Auto) 2.6 (1.2-4.9) X10*3/uL [place] # (Auto) 0.4 (0.1-1.2) X10*3/uL Eos # (Auto) 0.1 (0.0-0.4) X10*3/uL Baso # (Auto) 0.1 (0.0-0.2) X10*3/uL Abs Immat Gran (auto) 0.02 (0.00-0.03) X10*3/uL Absolute Neuts (auto) 3.6 (2.0-8.3) x10*3/uL Absolute Nucleated RBC 0.000 (0.0-0.012) X10*3/uL Nucleated RBC % (auto) 0.0 (0.0-0.2) /100WBC Hold Blue Top SEE NOTE Sodium 149 H (135-145) mmol/L Potassium 3.5 (3.3-5.1) mmol/L Chloride 114 H (96-108) mmol/L Carbon Dioxide 25 (22-29) mmol/L Anion Gap 14 (12-20) BUN 7 L (9-16) mg/dL Creatinine 0.80 (0.5-1.4) mg/dL Estim Creat Clear Calc 102.2 Estimated GFR > 60 Random Glucose 98 (60-115) mg/dL Calcium 8.5 D (8.4-10.2) mg/dL Magnesium 2.3 (1.6-2.6) mg/dL Total Bilirubin 0.3 (0.0-1.0) mg/dL Direct Bilirubin 0.1 (0.0-0.5) mg/dL AST 28 (5-37) U/L ALT 14 (0-40) U/L Alkaline Phosphatase 101 (39-117) U/L Total Creatine Kinase 155 (38-174) U/L Troponin I High Sens < 2.7 (<3.5-35.0) ng/L Total Protein 7.1 (6.5-8.0) g/dL Albumin 4.4 (3.5-5.0) g/dL Lipase 447 H (8-78) U/L Hold Yellow Top See Note Ethyl Alcohol 373 H* mg/dL Influenza Type A (PCR) NEGATIVE (Negative) Influenza Type B (PCR) NEGATIVE (Negative) RSV RNA Qual (PCR) NEGATIVE (Negative) SARS-CoV-2 RNA (RT-PCR) NEGATIVE (Negative) Independent Interpretation I performed an independent interpretation of an: EKG and CT Scan Interpretation: Rate: 64 Rhythm: NSR [place]: left Normal P waves. Normal CHA. Normal QRS complex. ST T wave : inverted T wave V1, no DAMION qTC: 435 prior studies: no acute ischemia The study has been interpreted contemporaneously by me. . Radiology Impression Discussion of test interpretation with radiology: I have reviewed the radiologist's reading. External Record Review External record reviewed: Inpatient record and Outpatient record Discharge Plan Discharge Clinical Impression: Alcoholic intoxication Qualifiers: Complication of substance-induced condition: with unspecified complication Qualified Code(s): F10.929 - Alcohol use, unspecified with intoxication, unspecified Patient Disposition: Home, Self-Care Instructions: Alcohol Intoxication (ED), Abuse of Alcohol (ED) Additional Instructions: return for any worsening symptoms or concerns Prescriptions: No Action Arnuity Ellipta 100 mcg/actuation blister with device 1 inh inhalation DAILY Qty: 30 1RF buspirone 10 mg tablet 10 mg PO BID sertraline 50 mg tablet 50 mg PO BEDTIME buprenorphine-naloxone [Suboxone] 8-2 mg film 10 mg sublingual BID nicotine 21 mg/24 hr patch 24 hour 1 patch transdermal DAILY Qty: 28 1RF lidocaine 5 % adhesive patch,medicated 1 patch topical DAILY Qty: 15 0RF Rx Instructions: leave on most painful area for up to 12 hrs pantoprazole 40 mg tablet,delayed release (DR/EC) 40 mg PO DAILY Qty: 14 0RF benzonatate 150 mg capsule 150 mg PO BID PRN (Reason: cough) Qty: 14 0RF trazodone 150 mg tablet 150 mg PO BEDTIME Qty: 90 0RF albuterol sulfate [Ventolin HFA] 90 mcg/actuation HFA aerosol inhaler 1 inh inhalation QID PRN (Reason: shortness of breath or wheezing) Qty: 8.5 1RF meloxicam 15 mg tablet 15 mg PO DAILY Qty: 14 0RF cyclobenzaprine 10 mg tablet 10 mg PO TID PRN (Reason: pain) Qty: 20 0RF Print Language: Ecuadorean
[2024-09-22 18:19] LABS: MANUAL DIFF FLAG NO
[2024-09-22 18:23] LABS: Basophils Absolute Auto 0.1 X10*3/uL (0.0-0.2); Basophils Percent Auto 1.2 % (0-2); Eosinophils Absolute Auto 0.1 X10*3/uL (0.0-0.4); Eosinophils Percent Auto 1.6 % (0-4); Hematocrit 41.8 % (42.0-52.0); Hemoglobin 14.2 g/dl (14.0-18.0); Imm Gran Abs Auto 0.02 X10*3/uL (0.00-0.03); Imm Gran Pct Auto 0.3 % (0.0-0.4); Lymphocytes Absolute Auto 2.6 X10*3/uL (1.2-4.9); Lymphocytes Percent Auto 37.7 % (20-40); Mean Corpuscular Hemoglobin 32.3 pg (27.0-33.0); Mean Corpuscular Volume 95.2 fL (80.0-98.0); Mean Platelet Volume 8.7 fL (9.4-12.4); Monocytes Absolute Auto 0.4 X10*3/uL (0.1-1.2); Monocytes Percent Auto 6.4 % (2-11); Neutrophils Absolute Auto 3.6 x10*3/uL (2.0-8.3); Neutrophils Percent Auto 52.8 % (45-73); Platelet Count 279 X10*3/uL (160-400); Red Blood Count 4.39 X10*6/uL (4.60-5.80); Red Cell Distribution Width 13.2 % (11.0-16.0); White Blood Count 6.9 X10*3/uL (4.8-10.8)
[2024-09-22 18:56] LABS: Troponin-I High Sensitivity < 2.7 ng/L (<3.5-35.0)
[2024-09-22 18:59] LABS: Alanine Aminotransferase 14 U/L (0-40); Albumin Level 4.4 g/dL (3.5-5.0); Alkaline Phosphatase 101 U/L (39-117); Anion Gap 14 (12-20); Aspartate Amino Transferase 28 U/L (5-37); Bilirubin Direct 0.1 mg/dL (0.0-0.5); Bilirubin Total 0.3 mg/dL (0.0-1.0); Blood Urea Nitrogen 7 mg/dL (9-16); Calcium 8.5 mg/dL (8.4-10.2); Carbon Dioxide 25 mmol/L (22-29); Chloride 114 mmol/L (96-108); Creatinine Clr Calc Pharmacy 102.2; Estimated Glomerular Filt Rate > 60; Ethanol 373 mg/dL; Glucose Random 98 mg/dL (60-115); Lipase 447 U/L (8-78); Magnesium 2.3 mg/dL (1.6-2.6); Potassium 3.5 mmol/L (3.3-5.1); Sodium 149 mmol/L (135-145); Total Protein 7.1 g/dL (6.5-8.0)
[2024-09-22 19:14] LABS: Influenza A PCR NEGATIVE (Negative); Influenza B PCR NEGATIVE (Negative); Resp Syncy Virus RNA Qual PCR NEGATIVE (Negative); SARS COV2 PCR INHOUSE NEGATIVE (Negative)
--- NOTE | 2024-09-22 19:37 | PC.NURSE ---
Patient comes in with ETOH on board and unable to walk in steady and straight line at this time. Security called as patient is non-redirectable. patient also making sexual comments towards staff, moved to a different area.
[2024-09-22 20:00] VITALS: BP 102/80; PULSE 88; RESP 20; TEMP 36.9; O2SAT 96
== END 2024-09-22 20:01 | disposition home or self-care (01) ==
PROVIDERS: Emergency Provider Emergency Medicine
DX: F10.129 Alcohol abuse with intoxication, unspecified (principal); Y90.8 Blood alcohol level of 240 mg/100 ml or more; R40.4 Transient alteration of awareness; R94.31 Abnormal electrocardiogram [ECG] [EKG]; Z71.41 Alcohol abuse counseling and surveillance of alcoholic; Z79.899 Other long term (current) drug therapy; Z03.818 Encounter for observation for suspected exposure to other biological agents ruled out
CPT/HCPCS: 0241U; 70450; 80048; 80076; 80307; 82550; 83690; 83735; 84484; 85025; 93005; 99283; 99284

== ENCOUNTER → 2024-09-22 18:06 | Outpatient (BNV) | payer OTHER, SELFPAY | PROVIDERS: Emergency Provider Emergency Medicine; Visit Provider Radiology Diagnostic Radiology | DX: R41.82 Altered mental status, unspecified (principal) | CPT/HCPCS: 70450 ==

== ENCOUNTER → 2024-09-22 18:06 | Outpatient (BNV) | payer OTHER, SELFPAY | PROVIDERS: Emergency Provider Emergency Medicine; Visit Provider Internal Medicine Cardiovascular Disease | DX: R94.31 Abnormal electrocardiogram [ECG] [EKG] (principal); R41.82 Altered mental status, unspecified; F10.129 Alcohol abuse with intoxication, unspecified | CPT/HCPCS: 93010 ==

== ENCOUNTER 2024-12-02 11:07 | Outpatient (AMB) | payer OTHER, SELFPAY ==
--- NOTE | 2024-12-02 11:21 | A.OFFPC_ITS ---
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 Required: No Accompanied by: Self / Same As Patient Allergies No Known Allergies Allergy (Verified 12/02/24 11:23) Medication List - Last Reconciled 12/02/24 by Ashley Wilson PA-C albuterol sulfate 90 mcg/actuation (Ventolin HFA) 1 inh inhalation QID PRN benzonatate 150 mg PO BID PRN buprenorphine-naloxone 8-2 mg (Suboxone) 10 mg sublingual BID buspirone 10 mg PO BID cyclobenzaprine 10 mg PO TID PRN fluticasone furoate 100 mcg/actuation (Arnuity Ellipta) 1 inh inhalation DAILY lidocaine 5% 1 patch topical DAILY meloxicam 15 mg PO DAILY nicotine 1 patch transdermal DAILY pantoprazole 40 mg PO DAILY sertraline 50 mg PO BEDTIME trazodone 150 mg PO BEDTIME Tobacco use date assessed: 12/02/24 Dental Screening Dental Screen Date: 12/02/24 Did you have a dental visit in the last 12 months?: No Did you have a dental problem in the last 6 months where you did not have access to dental care?: No Was dental information given to patient?: No HPI f/u asthma HPI Details 53-year-old male with past medical histo ry of tobacco abuse, alcohol abuse, asthma last seen 08/2024 coming in for follow up on asthma. At his last visit fluticasone propionate was increased and advised to follow up in 2 months. Patient tells us today he was having nausea and vomiting in September which has since resolved. He is unsure of the cause of the symptoms but is no longer experiencing them. He does continue to have occasional headache and nausea primarily in the middle of the night. He does eat late at night and often right before bed. He feels the new inhaler has been helping his symptoms and no longer has nighttime awakenings. He does still continue to have a persistent productive cough which is fairly new for him and we will often cough up yellow and green sputum. [facility] Medical History History of fracture of clavicle No known health problems Surgical History History of hernia surgery History of bunionectomy Family History Sister Mental health disorder Social History Housing: Apartment Alcohol intake: current Alcohol intake frequency: 3 or more drinks per day Alcohol type: hard liquor Patient Tobacco Use Status: Current everyday Tobacco user Tobacco use type: Cigarette Cigarette Packs Per Day: 0.5 Cigarettes Per Day: 10 e-Cigarette/Vaping Use: Never Used Second Hand Smoke Exposure: Yes service: No Current occupational status: employed Cognitive needs: No Hearing needs: No Vision needs: No Questionnaire PHQ-9 Over the last 2 weeks, how often have you been bothered by any of the following problems? 1. Little interest or pleasure in doing things: not at all 2. Feeling down, depressed, or hopeless: not at all 3. Trouble falling or staying asleep, or sleeping too much: not at all 4. Feeling tired or having little energy: not at all 5. Poor appetite or overeating: not at all 6. Feeling bad about yourself - or that you are a failure or have let yourself or your family down: not at all 7. Trouble concentrating on things, such as reading the newspaper or watching television: not at all 8. Moving or speaking so slowly that other people could have noticed. Or the opposite - being so fidgety or restless that you have been moving around a lot more than usual: not at all 9. Thoughts that you would be better off or of hurting yourself in some way: not at all Total score: 0 Depression Screening Interpretation: Negative Depression Screening Done: Yes Source: Developed by Drs. Jason Tiwari, Miguelina Ernandez, Trell Howard and colleagues, with an educational teresita from [employer]. Thrive Questionnaire Date Thrive assessed: 12/02/24 I am a: Patient What is your living situation today?: I have a steady place to live Within the past 12 months, did the food you bought not last and you didn't have the money to get more?: Never true Within the past 12 months, did you worry whether your food would run out before you got money to buy more?: Never true Do you have trouble paying for medicines?: No Do you have trouble getting transportation to medical appointments?: No Do you have trouble paying your heating and electricity bill?: No Do you have trouble taking care of your child, family member or friend?: No Do you have trouble with day-to-day activities such as bathing, preparing meals, shopping, managing finances, etc.?: No Are you currently unemployed and looking for a job?: Yes Are you interested in more education?: No Please select the resources that you would like help with: None Currently or been in a relationship where the following occur: No concerns reported THRIVE Score: 0 AUDIT C Alcohol Use Questionnaire (AUDIT-C) 1. How often do you have a drink containing alcohol?: 4 or more times a week 2. How many drinks containing alcohol do you have on a typical day when you are drinking?: 1 or 2 3. How often do you have six or more drinks on one occasion?: Never Total Score: 4 DANIELLA-7 AMB Questionnaire DANIELLA-7 Date DANIELLA - 7 assessed: 12/02/24 Feeling nervous, anxious, or on edge: 0 = Not at all Not being able to stop or control worryin = Not at all Worrying too much about different things: 0 = Not at all Trouble relaxin = Not at all Being so restless that it is hard to sit still: 0 = Not at all Becoming easily annoyed or irritable: 0 = Not at all Feeling afraid as if something awful might happen: 0 = Not at all Total DANIELLA-7 score (0-4 normal; 5-9 mild; 10-14 moderate; 15-21 severe): 0 Source: Developed by Drs. Jason Tiwari, Miguelina Ernandez, Trell Howard and colleagues, with an educational teresita from [employer]. Review of Systems Const Denies body aches, Denies chills, Denies fever(s), Denies headache(s) and Denies poor appetite Eyes Reports no additional complaints ENT Denies dysphagia, Denies dizziness, Denies headache(s) and Denies odynophagia Card Denies chest pain, Denies syncope, Denies edema, Denies irregular heart rhythm, Denies lightheadedness, Denies dyspnea and Denies dyspnea on exertion Resp Reports cough, Denies hemoptysis, Denies excessive phlegm production, Denies dyspnea and Denies dyspnea on exertion GI Denies abdominal pain, Denies constipation, Denies dysphagia, Reports dyspepsia, Reports heartburn, Denies diarrhea, Reports nausea, Denies odynophagia and Denies vomiting Reports no additional complaints Musc Reports no additional complaints and Denies abnormal gait Skin/Breast Reports system reviewed and no additional complaints, except as documented Neuro Denies abnormal gait, Denies dizziness, Denies syncope and Denies headache(s) Psych Reports no additional complaints Physical exam (Primary Care) Vital Signs: Oxygen Delivery Method Room Air 12/02/24 11:22 Tobacco/Smoking Status: Tobacco use Status Tobacco use date assessed 09/08/24 09/08/24 10:12 Patient Tobacco Use Status Current everyday Tobacco 09/08/24 10:12 Tobacco use type Cigarette 09/08/24 10:12 e-Cigarette/Vaping Use Never Used 09/08/24 10:12 Depression Screening Interpretation: Negative Thrive Assessment: Date of Thrive Assessment Date Thrive assessed 11/28/23 09/08/24 10:12 Currently or been in a relationship where the following occur: No concerns reported Const General: cooperative, healthy appearing, comfortable and no acute distress Orientation/consciousness: patient oriented x3 HENMT Head: Yes normocephalic Ears: hearing grossly normal bilaterally General nose exam: Normal external nose present Eyes General: appearance normal, both eyes and all related structures Conjunctivae: conjunctivae normal Neck Neck: Yes full ROM and Yes no lymphadenopathy Resp Effort & Inspection: normal respiratory effort Auscultation: clear to auscultation bilaterally, no crackles, no rales, no rhonchi and no wheezes Cardio Rate: regular rate Rhythm: regular rhythm Skin General skin exam: no rashes or lesions noted Neuro General: patient oriented x3 Gait exam (Neuro): Normal gait present Extrem General: Yes normal to inspection, Yes full ROM and No edema Psych Affect: normal affect Attitude: cooperative Insight: Good insight present (Psych) Judgement: Good judgement present (Psych) Coding Level of Care Code Est Pt Level 3 (58889) Diagnoses Alcohol abuse F10.10 Asthma J45.909 Tobacco abuse Z72.0 Cough R05.9 Acid reflux K21.9 Assessment & Plan Assessment & Plan (1) Alcohol abuse: Code(s): F10.10 - Alcohol abuse, uncomplicated Category: Social Hx Plan: Continue to abstain from alcohol. (2) Asthma: Code(s): J45.909 - Unspecified asthma, uncomplicated Category: Medical Plan: Asthma currently controlled on present medications. Continue on albuterol as needed and Arnuity Ellipta daily Avoid triggers such as allergies. (3) Tobacco abuse: Code(s): Z72.0 - Tobacco use Category: Medical Plan: Smoking cigarettes and the use of tobacco can be harmful. We discussed the importance of stopping and options to aid in smoking cessation. Discussed with patient smoking cigarettes can significantly contribute to the worsening of his asthma (4) Cough: Code(s): R05.9 - Cough, unspecified Category: Medical Plan: Patient is being seeing new productive cough. Given recent nausea and vomiting would recommend chest x-ray to ensure there is no development of pneumonia. X- ray was ordered (5) Acid reflux: Code(s): K21.9 - Gastro-esophageal reflux disease without esophagitis Category: Medical Plan: Patient's symptoms most consistent with acid reflux. Avoid trigger foods such as citrus, tomato products, soda, caffeine, spicy foods and other foods that may be irritating to your stomach. Avoid laying flat 3-4 hours after eating and elevate the head of the bed 30 degrees to prevent acid from moving into the esophagus. Plan to start on pantoprazole 40 mg daily and can consider upper GI series. Plan This note was constructed using voice recognition software. While every effort has been made to ensure accuracy and twister hand, still areas may have been included sometimes these areas may affect the content or meeting of the given symptoms. Total time spent caring for the patient today was 20 minutes. This includes time spent before the visit reviewing the chart, time spent during the visit, and time spent after the visit and documentation. Orders: Orders XR chest 2V Today R05.9 - Cough, unspecified Medications: Refilled pantoprazole 40 mg PO DAILY 90 tabs 0RF
[2024-12-02 11:22] VITALS: BP 118/78; PULSE 56; O2SAT 95; BMI 21.7
--- OUTSIDE RECORDS SUMMARY | 2024-12-02 13:07 | XMS_ITS | Clinical Summary ---
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 Social History Tobacco Use Types Packs/Day Years Used Date Smoking Tobacco: Every Day Cigarettes Passive Smoke Exposure: Never Smokeless Tobacco: Former Tobacco Cessation:Ready to Q uit: Not Asked; Counseling Given: Not Answered Alcohol Use Standard Drinks/Week Comments Never 0 (1 standard drink = 0.6 oz pur e alcohol) Sex and Gender Information Value Date Recorded Sex Assigned at Male 07/23/2022 10:38 AM EDT Legal Sex Male 10:38 AM EDT Gender Identity Choose not to disclose 10:38 AM EDT Sexual Orientation Choose not to disclose 2021 10:38 AM EDT Last Filed Vital Signs Vital Sign Reading Time Taken Comments Blood Pressure 124/78 12/21/2022 2:39 PM EDT Pulse 78 11/21/2022 8:20 AM EST Temperature - - Respiratory Rate - - Oxygen Saturation - - Inhaled Oxygen Concentration - - Weight - - Height - - Body Mass Index - - Plan of Treatment Health Maintenance Due Date Last Done Comments CT Colonography 1968 Colonoscopy 1968 Colorectal Cancer Screening 1968 Dental Prophylaxis 1968 Dental X-Ray: Bitewings 1968 Dental X-Ray: Full Mouth 1968 Depression Screening 1968 FIT DNA/Cologuard 1968 FIT 1968 FOBT 1968 HIV Screening 1968 Lipid Panel 1968 SDOH Screening 1968 Sigmoidoscopy 1968 Alcohol/Substance Use Screening 1980 Hepatitis C Screening 1986 DTaP/Tdap/Td Vaccines (1 - Tdap) 1987 Hepatitis B Vaccines (1 of 3 - 19+ 3-dose series) 1987 Pneumococcal Vaccine: 50+ Ye ars (1 of 2 - PCV) 1987 Zoster Vaccines (1 of 2) 2018 Dental Oral Exam 05/09/2023 11/08/2022 Tobacco Screening 01/22/2024 01/21/2023 COVID-19 Vaccine (1 - 2023-2 5 season) 2024 Influenza Vaccine (#1) 2024 RSV Patients and Pa tients Aged 60 years or older (1 - 1-dose 75+ series) 2043 HIB Vaccines Aged Out No longer eligi ble based on patient's age to complete this topic HPV Vaccines Aged Out No longer eligi ble based on patient's age to complete this topic Hepatitis A Vaccines Aged Out No long er eligible based on patient's age to complete this topic IPV Vaccines Aged Out No longer eligi ble based on patient's age to complete this topic Meningococcal Vaccine Aged Out No mitzi alise eligible based on patient's age to complete this topic RSV under 20 months Aged Out No longe r eligible based on patient's age to complete this topic Rotavirus Vaccines Aged Out No longer eligible based on patient's age to complete this topic Procedures Procedure Name Priority Date/Time Associated Diagnosis Comments PERIODIC ORAL EVALUATION - ESTABLISHED PATIENT Routine 11/08/2022 8:00 AM EST from Last 3 Months or Most Recently Relevant to Health Maintenance Insurance [facility]ICA[place] STAND ADULT
--- OUTSIDE RECORDS SUMMARY | 2024-12-02 13:07 | XMS_ITS | Encounter Summary ---
Author Organization [employer] Address [address] [facility] [address] [address] [place] [address] Care Team Providers Care Public Defender Name Role Phone Unavailable Primary Care Provider Unavailabl e Reason for Visit * Reason Onset Date Comments Appointment 01/17/2023 Encounter Details Date Type Department Care Team ([facility] st Contact Info) Description 01/17/2023 Telephone C ADULT DENTAL [address] [place] [address] Nathen Davis DDS [address] [place], [place] [phone] Appointment Social History Tobacco Use Types Packs/Day Years Used Date Smoking Tobacco: Former Cigarettes Passive Smoke Exposure: Never Smokeless Tobacco: Former Alcohol Use Standard Drinks/Week Comments Never 0 (1 standard drink = 0.6 oz pur e alcohol) Sex and Gender Information Value Date Recorded Sex Assigned at Male 07/23/2022 10:38 AM EDT Legal Sex Male 10:38 AM EDT Gender Identity Choose not to disclose 10:38 AM EDT Sexual Orientation Choose not to disclose 2021 10:38 AM EDT COVID-19 Exposure Response Date Recorded In the last 10 days, have yo u been in contact with someone who was confirmed or suspected to have Coronavirus/COVID-19? No / Unsure 01/01/2023 1:24 PM EDT documented as of this encounter Miscellaneous Notes * Telephone Encounter - Anupama Maloney - 01/18/2023 12:56 PM EDT Patient has been scheduled for Sunday 01/21 at 9:30am * Telephone Encounter - Arabella Diaz - 01/17/2023 12:27 PM EDT Everardo PALACIOS 1970 Patient called in and wanted to know if dentures are back from the labplease advise. documented in this encounter Plan of Treatment Not on file documented as of this encounter Visit Diagnoses Not on filedocumented in this encounter
--- OUTSIDE RECORDS SUMMARY | 2024-12-02 13:07 | XMS_ITS | Encounter Summary ---
Author Organization [employer] Address [address] [facility] [address] [place] [address] Care Team Providers Care Crown Wheel Assembler Name Role Phone Unavailable Primary Care Provider Unavailabl e Encounter Details Date Type Department Care Team (Late st Contact Info) Description 01/25/2023 Abstract [facility] ADULT DENTAL [address] [place] [address] Nathen Davis DDS [address] [place] [address] Social History Tobacco Use Types Packs/Day Years [...] Recorded In the last 10 days, have delta u been in contact with someone who was confirmed or suspected to have Coronavirus/COVID-19? No / Unsure 01/21/2023 9:32 AM EDT documented as of this encounter Plan of Treatment Not on file documented as of this encounter Visit Diagnoses Not on filedocumented in this encounter
== END 2024-12-02 11:56 | disposition home or self-care (01) ==
LOC: HO.HMCH 11:08
DX: F10.10 Alcohol abuse, uncomplicated (principal); J45.909 Unspecified asthma, uncomplicated; Z72.0 Tobacco use; R05.9 Cough, unspecified; K21.9 Gastro-esophageal reflux disease without esophagitis

== ENCOUNTER 2024-12-02 11:07 | Outpatient (REF) | payer OTHER, SELFPAY ==
--- NOTE | ~2024-12-02 | XR_ITS ---
EXAMINATION: XR CHEST CLINICAL INFORMATION: R05.9 - Cough, unspecified COMPARISON: June 12, 2024. TECHNIQUE: 2 views of the chest were obtained. FINDINGS: Mild prominence of the interstitial markings and the pulmonary hilum more as interrogated on the right side. No consolidation pleural effusion or pneumothorax. Cardiomediastinal silhouette size is normal. Mild multilevel thoracic spondylosis and mild S-shaped curvature of the thoracic spine. XR/XR chest 2V IMPRESSION: Acute small airway inflammatory process should be considered in the correct clinical settings. Electronically signed by: Sam Dugan MD 12/02/2024 12:33 PM EDT
--- OUTSIDE RECORDS SUMMARY | 2024-12-02 14:06 | XMS_ITS | Encounter Summary ---
Author Organization [employer] Address [address] [facility] [address] [place] [address] Care Team Providers Care Wastewater Superintendent Name Role Phone Unavailable Primary Care Provider Unavailabl e Encounter Details Date Type Department Care Team (Late st Contact Info) Description 01/25/2023 Abstract [facility] ADULT DENTAL [address] [place] [address] Nathen Davis DDS [address] [place] [address] Social History Tobacco Use Types Packs/Day Years [...]
--- OUTSIDE RECORDS SUMMARY | 2024-12-02 14:06 | XMS_ITS | Clinical Summary ---
Author Organization [employer] Address [address] [facility] [address] [place] [address] Care Team Providers Care Dietitian Chief Name Role Phone Unavailable Primary Care Provider [...] Most Recently Relevant to Health Maintenance Insurance [facility] STAND [place]
--- OUTSIDE RECORDS SUMMARY | 2024-12-02 14:06 | XMS_ITS | Encounter Summary ---
Author Organization [employer] Address [address] [facility] [address] [place] [address] Care Team Providers Care Vision Rehabilitation Therapist Name Role Phone Unavailable Primary Care Provider Unavailabl e Reason for Visit * Reason Onset Date Comments Appointment 01/17/2023 Encounter Details Date Type Department Care Team ([facility] st Contact Info) Description 01/17/2023 Telephone C ADULT DENTAL [address] [place] [address] Nathen Davis DDS [address] [place], [place] [phone] Appointment Social History Tobacco Use Types Packs/Day [...] Diaz - 01/17/2023 12:27 PM EDT Everardo PALACOIS 1970 Patient called in and wanted to know if dentures are back from the labplease advise. documented in this encounter Plan of Treatment Not on file documented as of this encounter Visit Diagnoses Not on filedocumented in this encounter
== END 2024-12-02 11:08 | disposition home or self-care (01) ==
LOC: HO.XRAY 11:07
DX: R05.9 Cough, unspecified (principal); Z72.0 Tobacco use; F10.10 Alcohol abuse, uncomplicated; K21.9 Gastro-esophageal reflux disease without esophagitis
CPT/HCPCS: 71046; 99212

== ENCOUNTER → 2024-12-02 12:10 | Outpatient (BNV) | payer OTHER, SELFPAY | PROVIDERS: Visit Provider Radiology Diagnostic Radiology | DX: R05.9 Cough, unspecified (principal) | CPT/HCPCS: 71046 ==

== ENCOUNTER 2025-01-15 20:51 | Emergency (ER) | payer OTHER, SELFPAY ==
[2025-01-15 21:07] VITALS: BP 104/70; BP 122/84; PULSE 65; PULSE 68; RESP 18; TEMP 36.8; O2SAT 93; BMI 21.5
--- NOTE | 2025-01-15 21:40 | ED_ITS ---
HPI - Alcohol General Chief Complaint: ETOH/Substance Use Stated Complaint: ETOH Time Seen by Provider: 01/15/25 21:21 Source: patient Mode of arrival: EMS History of Present Illness ED Provider: HPI narrative: Patient is brought by EMS as he was lying outside his house after drinking alcohol been here multiple times for similar reasons patient's drinks vodka and also on Suboxone denied any overdose or extra medication patient is able to ambulate in his steady gait no signs of injuries patient's looks to sleepy Related Data Home Medications ?Medication ?Instructions ?Recorded ?Confirmed buprenorphine 8 mg-naloxone 2 mg 10 mg sublingual BID 03/01/22 12/02/24 sublingual film (Suboxone) buspirone 10 mg tablet 10 mg PO BID 03/01/22 12/02/24 sertraline 50 mg tablet 50 mg PO BEDTIME 03/01/22 12/02/24 Previous Rx's ?Medication ?Instructions ?Recorded lidocaine 5 % topical patch 1 patch topical DAILY pain #15 ea 11/28/23 nicotine 21 mg/24 hr daily 1 patch transdermal DAILY #28 ea 04/22/24 transdermal patch benzonatate 150 mg capsule 150 mg PO BID PRN cough #14 caps 06/17/24 albuterol sulfate 90 mcg/actuation 1 inh inhalation QID PRN shortness 09/08/24 aerosol inhaler (Ventolin HFA) of breath or wheezing #8.5 grams cyclobenzaprine 10 mg tablet 10 mg PO TID PRN pain #20 tabs 09/08/24 meloxicam 15 mg tablet 15 mg PO DAILY #14 tabs 09/08/24 fluticasone furoate 100 1 inh inhalation DAILY #30 ea 09/15/24 mcg/actuation blister powder for inhalation (Arnuity Ellipta) pantoprazole 40 mg tablet,delayed 40 mg PO DAILY #90 tabs 12/02/24 release trazodone 150 mg tablet 150 mg PO BEDTIME #90 tabs 12/14/24 Allergies Allergy/AdvReac Type Severity Reaction Status Date / Time No Known Allergies Allergy Verified 01/15/25 21:12 Review of Systems Review of Systems: Yes all other systems are reviewed and are negative PMFSH Past Medical History Medical History History of fracture of clavicle No known health problems Surgical History History of hernia surgery History of bunionectomy Family History Family History Sister Mental health disorder Social History Social History Housing: Apartment Alcohol intake: current Alcohol intake frequency: 3 or more drinks per day Alcohol type: hard liquor Patient Tobacco Use Status: Current everyday Tobacco user Tobacco use type: Cigarette Cigarette Packs Per Day: 0.5 Cigarettes Per Day: 10 Smoked in Last 30 Days: No e-Cigarette/Vaping Use: Never Used Second Hand Smoke Exposure: Yes Use of substances other than those prescribed or required for medical reasons: No Advance Directives: No Advance Directives Information Provided: No Do you have a plan to hurt others: No Plan service: No Current occupational status: employed Cognitive needs: No Hearing needs: No Vision needs: No Physical Exam ED Vital Signs: Vital Signs - 24 hr 01/15/25 21:07 Temperature 98.2 F Pulse Rate 65 Respiratory Rate 18 Blood Pressure 104/70 Pulse Oximetry 93 Oxygen Delivery Method Room Air BMI result Body Mass Index 21.5 Appearance: Alert. Oriented X3. No acute distress. Intoxicated Eyes: PERRLA, No Nystagmus ENT: Pharynx normal. Oral Mucosa moist Neck: Normal inspection. Neck supple. CVS: Normal heart rate and rhythm. Pulses normal. Respiratory: No respiratory distress. Equal air entry bilateral, no wheezing/rales/rhonchi Abdomen: Soft and nontender. Bowel sounds are present, no mass palpable, no CVA tenderness Skin: Skin warm and dry. Normal skin color. Normal skin turgor. Extremities: No lower extremity edema. No calf tenderness Neuro: Oriented X 3. No motor deficit. No sensory deficit.No cerebellar signs , cranial nerves II-XII intact Medical Decision Making Medical Decision Making MDM Narrative: Patient has refused any help for alcohol abuse will like to go home patient has been here multiple times for similar reasons walking in his steady gait will discharge patient home denies any SI or HI Discharge Plan Discharge Clinical Impression: Alcoholic intoxication Patient Disposition: Home, Self-Care Instructions: Alcohol Intoxication (ED) Additional Instructions: Stop drinking alcohol and follow up with detox Prescriptions: No Action Arnuity Ellipta 100 mcg/actuation blister with device 1 inh inhalation DAILY Qty: 30 1RF trazodone 150 mg tablet 150 mg PO BEDTIME Qty: 90 2RF buspirone 10 mg tablet 10 mg PO BID sertraline 50 mg tablet 50 mg PO BEDTIME buprenorphine-naloxone [Suboxone] 8-2 mg film 10 mg sublingual BID nicotine 21 mg/24 hr patch 24 hour 1 patch transdermal DAILY Qty: 28 1RF lidocaine 5 % adhesive patch,medicated 1 patch topical DAILY Qty: 15 0RF Rx Instructions: leave on most painful area for up to 12 hrs benzonatate 150 mg capsule 150 mg PO BID PRN (Reason: cough) Qty: 14 0RF albuterol sulfate [Ventolin HFA] 90 mcg/actuation HFA aerosol inhaler 1 inh inhalation QID PRN (Reason: shortness of breath or wheezing) Qty: 8.5 1RF meloxicam 15 mg tablet 15 mg PO DAILY Qty: 14 0RF cyclobenzaprine 10 mg tablet 10 mg PO TID PRN (Reason: pain) Qty: 20 0RF pantoprazole 40 mg tablet,delayed release (DR/EC) 40 mg PO DAILY Qty: 90 0RF Print Language: Vietnamese
--- NOTE | 2025-01-15 22:24 | PC.NURSE ---
per MD pt can leave with sober ride. girlfriends number not in service. pt states hes unsure where his phone is, no other numbers available at this time.
[2025-01-16 04:25] VITALS: BP 110/80; PULSE 60; RESP 16; TEMP 36.7; O2SAT 95
== END 2025-01-16 04:46 | disposition home or self-care (01) ==
PROVIDERS: Emergency Provider Internal Medicine
DX: F10.120 Alcohol abuse with intoxication, uncomplicated (principal); Y90.9 Presence of alcohol in blood, level not specified; F11.20 Opioid dependence, uncomplicated; F17.210 Nicotine dependence, cigarettes, uncomplicated; Z79.899 Other long term (current) drug therapy
CPT/HCPCS: 99283; 99284

== ENCOUNTER 2025-05-07 15:33 | Outpatient (AMB) | payer OTHER, SELFPAY ==
--- OUTSIDE RECORDS SUMMARY | 2025-05-07 15:35 | XMS_ITS | Encounter Summary ---
Author Organization [employer] Address [address] [facility] [address] [place] [address] Care Team Providers Care Culture Media Laboratory Assistant Name Role Phone Unavailable Primary Care Provider Unavailabl e Encounter Details Date Type Department Care Team (Late st Contact Info) Description 01/25/2023 Abstract [facility] ADULT DENTAL [address] [place] [address] Nathen Davis DDS [address] [place] [address] Social History Tobacco Use Types Packs/Day Years [...]
[2025-05-07 15:39] VITALS: BP 132/50; PULSE 54; O2SAT 98; BMI 20.9
--- NOTE | 2025-05-07 15:39 | A.OFFPC_ITS ---
Vital Signs 05/07/25 15:39 Height 5 ft 10 in Weight 146 lb BMI 20.9 BP 132/50 L Blood Pressure Location Lt brachial Position Sitting Pulse 54 Pulse Source Pulse Oximeter Pulse Oximetry (%) 98 Oxygen Delivery Method Room Air Intake Visit Reasons: f/u gerd Camp Maintenance Supervisor Required: No Accompanied by: Self / Same As Patient Allergies No Known Allergies Allergy (Verified 05/07/25 15:52) Medication List - Last Reconciled 05/07/25 by Ashley Wilson PA-C albuterol sulfate 90 mcg/actuation (Ventolin HFA) 1 inh inhalation QID PRN benzonatate 150 mg PO BID PRN buprenorphine-naloxone 8-2 mg (Suboxone) 10 mg sublingual BID buspirone 10 mg PO BID cyclobenzaprine 10 mg PO TID PRN fluticasone furoate 100 mcg/actuation (Arnuity Ellipta) 1 inh inhalation DAILY lidocaine 5% 1 patch topical DAILY meloxicam 15 mg PO DAILY nicotine 1 patch transdermal DAILY pantoprazole 40 mg PO DAILY sertraline 50 mg PO BEDTIME trazodone 150 mg PO BEDTIME Tobacco use date assessed: 05/07/25 Dental Screening Dental Screen Date: 12/02/24 Did you have a dental visit in the last 12 months?: No Did you have a dental problem in the last 6 months where you did not have access to dental care?: No Was dental information given to patient?: No HPI f/u gerd HPI Details 54-year-old male with past medical histo ry of tobacco abuse, alcohol abuse, asthma last seen 11/2024 coming in for follow up. Presenting with dizziness, nausea, and asthma management. Occurs almost daily, often triggered by heat or physical exertion. Described as lightheadedness with occasional nausea. No recent fainting, denies chest pain or shortness of breath. Intermittent, sometimes leading to vomiting. Recent weight loss of 4 pounds. Taking pantoprazole daily, but symptoms persist. Frequent inhaler use, Arnuity taken daily but sometimes skipped. Albuterol used multiple times a day. Continues to smoke despite having nicotine patches. [facility] Medical History History of fracture of clavicle No known health problems Surgical History History of hernia surgery History of bunionectomy Family History Sister Mental health disorder Social History Housing: Apartment Alcohol intake: current Alcohol intake frequency: 3 or more drinks per day Alcohol type: hard liquor Patient Tobacco Use Status: Current everyday Tobacco user Tobacco use type: Cigarette Cigarette Packs Per Day: 0.5 Cigarettes Per Day: 10 e-Cigarette/Vaping Use: Never Used Second Hand Smoke Exposure: Yes service: No Current occupational status: employed Cognitive needs: No Hearing needs: No Vision needs: No Questionnaire Thrive Questionnaire Date Thrive assessed: 05/07/25 DANIELLA-7 AMB Questionnaire DANIELLA-7 Date DANIELLA - 7 assessed: 05/07/25 Source: Developed by Drs. Jason Tiwari, Miguelina Ernandez, Trell Howard and colleagues, with an educational teresita from [employer]. Review of Systems Const Denies body aches, Denies chills, Reports fatigue, Denies fever(s), Denies headache(s) and Reports poor appetite Eyes Reports no additional complaints ENT Reports dizziness and Denies headache(s) Card Denies chest pain, Denies syncope, Denies edema, Denies irregular heart rhythm, Reports lightheadedness and Denies dyspnea Resp Denies dyspnea GI Denies abdominal pain, Reports dyspepsia, Reports heartburn, Reports nausea and Denies vomiting Reports no additional complaints Musc Reports no additional complaints and Denies abnormal gait Skin/Breast Reports system reviewed and no additional complaints, except as documented Neuro Denies abnormal gait, Reports dizziness, Denies syncope and Denies headache(s) Psych Reports no additional complaints Endo Reports fatigue Physical exam (Primary Care) Vital Signs: Last Vital Signs Pulse 54 05/07/25 15:39 BP 132/50 L 05/07/25 15:39 Pulse Ox 98 05/07/25 15:39 Oxygen Delivery Method Room Air 05/07/25 15:39 BMI result Body Mass Index 20.9 Tobacco/Smoking Status: Tobacco use Status Tobacco use date assessed 05/07/25 05/07/25 15:43 Patient Tobacco Use Status Current everyday Tobacco 05/07/25 15:43 Tobacco use type Cigarette 05/07/25 15:43 e-Cigarette/Vaping Use Never Used 05/07/25 15:43 Thrive Assessment: Date of Thrive Assessment Date Thrive assessed 05/07/25 05/07/25 15:43 Const General: cooperative, healthy appearing, comfortable and no acute distress Orientation/consciousness: patient oriented x3 HENMT Head: Yes normocephalic Ears: hearing grossly normal bilaterally General nose exam: Normal external nose present Eyes General: appearance normal, both eyes and all related structures Conjunctivae: conjunctivae normal Neck Neck: Yes full ROM and Yes no lymphadenopathy Resp Effort & Inspection: normal respiratory effort Auscultation: clear to auscultation bilaterally, no crackles, no rales, no rhonchi and no wheezes Cardio Rate: regular rate Rhythm: regular rhythm Skin General skin exam: no rashes or lesions noted Neuro General: patient oriented x3 Gait exam (Neuro): Normal gait present Extrem General: Yes normal to inspection, Yes full ROM and No edema Psych Affect: normal affect Attitude: cooperative Insight: Good insight present (Psych) Judgement: Good judgement present (Psych) Coding Level of Care Code Est Pt Level 4 (26064) Diagnoses Dizziness R42 Arm numbness R20.0 Alcohol abuse F10.10 Asthma J45.909 Tobacco abuse Z72.0 Acid reflux K21.9 Irregular bowel habits R19.8 Assessment & Plan Assessment & Plan (1) Dizziness: Code(s): R42 - Dizziness and giddiness Category: Medical Plan: Patient having occasional dizziness and lightheadedness that leads to arm tingling with exertion. Plan to obtain cardiac stress test for further evaluation as well as carotid ultrasound for further evaluation. Basic blood work has also been ordered. I advised patient to avoid strenuous activity while undergoing a workup and reviewed with the patient red flag symptoms and when to present to the ED. (2) Arm numbness: Code(s): R20.0 - Anesthesia of skin Category: Medical Plan: See above (3) Alcohol abuse: Code(s): F10.10 - Alcohol abuse, uncomplicated Category: Social Hx Plan: Continue to abstain from alcohol. (4) Asthma: Code(s): J45.909 - Unspecified asthma, uncomplicated Category: Medical Plan: Asthma is not well controlled and patient does often miss doses of Arnuity. Plan to increase Arnuity at this time to 200 mg daily and continue on albuterol as needed. Plan to follow up in [address] Gibbons (5) Tobacco abuse: Code(s): Z72.0 - Tobacco use Category: Medical Plan: Smoking cigarettes and the use of tobacco can be harmful. We discussed the importance of stopping and options to aid in smoking cessation. Discussed with patient smoking cigarettes can significantly contribute to the worsening of his asthma (6) Acid reflux: Code(s): K21.9 - Gastro-esophageal reflux disease without esophagitis Category: Medical Plan: Patient continues to have nausea and occasional vomiting despite the use of the omeprazole. Plan to obtain upper GI series for further evaluation and referral was placed to GI as well. (7) Irregular bowel habits: Code(s): R19.8 - Other specified symptoms and signs involving the digestive system and abdomen Category: Medical Plan: Referral was placed to GI as patient is overdue for colonoscopy as well. Plan A stress test has been ordered to evaluate the patient's dizziness and potential cardiac issues. The patient is advised to avoid strenuous activities until the test is completed. Additionally, an upper GI series is planned to investigate the cause of nausea and vomiting, with a referral to a GI specialist for further evaluation. A colonoscopy is recommended due to the patient's age and irregular bowel habits. The patient's asthma management will be adjusted by increasing the dosage of Arnuity, and he is reminded to use it daily. Albuterol should be used as needed. Smoking cessation is encouraged, and the patient is advised to utilize nicotine patches. Blood pressure monitoring is recommended to assess any correlation with dizziness episodes. This note was constructed using voice recognition software. While every effort has been made to ensure accuracy and oil field technician, still areas may have been included sometimes these areas may affect the content or meeting of the given symptoms. Total time spent caring for the patient today was 30 minutes. This includes time spent before the visit reviewing the chart, time spent during the visit, and time spent after the visit and documentation. Patient was informed and verbally consented to the use of an ambient scribe for clinic note documentation during this visit. Orders: Orders CA stress test Today R42 - Dizziness and giddiness Vitamin D 25-OH Total Today R42 - Dizziness and giddiness Complete Blood Count Auto Diff Today R42 - Dizziness and giddiness Comprehensive Met. Panel Today R42 - Dizziness and giddiness TSH reflex Free T4 Today R42 - Dizziness and giddiness Vitamin B12 and Folate Today R42 - Dizziness and giddiness FL upper GI series Today K21.9 - Gastro-esophageal reflux disease without esophagitis Hemoglobin A1c Today R20.0 - Anesthesia of skin US carotid duplex BI Today R42 - Dizziness and giddiness Referrals Gastroenterology Referral K21.9 - Gastro-esophageal reflux disease without esophagitis, R19.8 - Other specified symptoms and signs involving the digestive system and abdomen, Z12.11 - Encounter for screening for malignant neoplasm of colon, Z12.12 - Encounter for screening for malignant neoplasm of rectum Medications: New fluticasone furoate 200 mcg/actuation (Arnuity Ellipta) 1 inh inhalation DAILY 30 ea 0RF Discontinued fluticasone furoate 100 mcg/actuation (Arnuity Ellipta) Discontinued Reason: Patient no longer taking 1 inh inhalation DAILY 30 ea 1RF
== END 2025-05-07 16:14 | disposition home or self-care (01) ==
LOC: HO.HMCH 15:33
DX: R42 Dizziness and giddiness (principal); R20.0 Anesthesia of skin; F10.10 Alcohol abuse, uncomplicated; J45.909 Unspecified asthma, uncomplicated; Z72.0 Tobacco use; K21.9 Gastro-esophageal reflux disease without esophagitis; R19.8 Other specified symptoms and signs involving the digestive system and abdomen

== ENCOUNTER → 2025-05-07 15:33 | Outpatient (BNVA) | payer OTHER, SELFPAY | DX: K21.9 Gastro-esophageal reflux disease without esophagitis (principal); J45.909 Unspecified asthma, uncomplicated; R42 Dizziness and giddiness; R11.0 Nausea; R20.0 Anesthesia of skin; F10.10 Alcohol abuse, uncomplicated; R19.8 Other specified symptoms and signs involving the digestive system and abdomen; F17.210 Nicotine dependence, cigarettes, uncomplicated | CPT/HCPCS: 99212 ==

== ENCOUNTER 2025-05-22 17:57 | Emergency (ER) | payer OTHER, SELFPAY ==
--- NOTE | ~2025-05-22 | CT_ITS ---
CLINICAL HISTORY: trauma CT head without contrast Comparison: CT/SR - CT HEAD/BRAIN WO IV CON - 09/22/24 19:12 EST Findings: No intra-axial mass, midline shift, hydrocephalus, or acute hemorrhage. Low attenuation in the periventricular white matter consistent with chronic small-vessel ischemic gliosis. Mild cerebral atrophy. There is no sinus or mastoid fluid. The orbits are within normal limits. Small right frontal scalp swelling. There is no acute fracture. IMPRESSION: 1. No acute intracranial findings. This document has been electronically signed by: Arvind Coronel MD on 05/22/2025 20:37:41
--- NOTE | ~2025-05-22 | CT_ITS ---
CLINICAL HISTORY: trauma CT cervical spine without contrast Comparison: 08/28/24 Findings: Mild multilevel retrolisthesis and anterolisthesis, degenerative. No fracture. Multilevel degenerative change is most prominent at C6/C7 with moderate to severe central spinal canal stenosis. No epidural hematoma. Normal thickness of the prevertebral soft tissues. The lung apices are clear. Impression: No acute findings. This document has been electronically signed by: Lola Peace MD on 05/22/2025 19:54:38
[2025-05-22 18:08] VITALS: BP 105/76; BP 110/70; PULSE 56; PULSE 65; RESP 16; TEMP 36.1; O2SAT 95; O2SAT 97; BMI 23.3
--- NOTE | 2025-05-22 18:41 | PC.NURSE ---
patient presented to the ED after being found unresponsive outside face down. patient does not answer any questions appropriately, just states I drank too much did not state how much he drank or what. patient denies any illicit drug use. patient changed out of dirt clothes and into hospital attire. patient belongings secured in [facility].
[2025-05-22 18:48] LABS: Hematocrit 40.6 % (42.0-52.0); Hemoglobin 13.8 g/dl (14.0-18.0); Imm Gran Abs Auto 0.01 X10*3/uL (0.00-0.03); Imm Gran Pct Auto 0.2 % (0.0-0.4); Lymphocytes Absolute Auto 2.7 X10*3/uL (1.2-4.9); MANUAL DIFF FLAG NO; Mean Corpuscular HGB Conc 34.0 g/dl (31.0-36.0); Mean Corpuscular Hemoglobin 32.8 pg (27.0-33.0); Mean Corpuscular Volume 96.4 fL (80.0-98.0); NRBC Abs Auto 0.000 X10*3/uL (0.0-0.012); NRBC Pct Auto 0.0 /100WBC (0.0-0.2); Platelet Count 232 X10*3/uL (160-400); Red Blood Count 4.21 X10*6/uL (4.60-5.80); White Blood Count 6.4 X10*3/uL (4.8-10.8)
[2025-05-22 19:02] LABS: Alanine Aminotransferase 13 U/L (0-40); Albumin Level 4.5 g/dL (3.5-5.0); Alkaline Phosphatase 78 U/L (39-117); Anion Gap 14 (12-20); Aspartate Amino Transferase 31 U/L (5-37); Blood Urea Nitrogen 9 mg/dL (9-16); Calcium 8.4 mg/dL (8.4-10.2); Carbon Dioxide 29 mmol/L (22-29); Chloride 112 mmol/L (96-108); Creatinine Clr Calc Pharmacy 78.8; Estimated Glomerular Filt Rate > 60; Lipase 69 U/L (8-78); Magnesium 2.4 mg/dL (1.6-2.6); Potassium 3.7 mmol/L (3.3-5.1); Sodium 151 mmol/L (135-145); Total Protein 6.7 g/dL (6.5-8.0)
[2025-05-22 19:16] LABS: Acetaminophen LAB < 3 mcg/mL (<30); Salicylate < 5.0 mg/dL (15-30)
--- OUTSIDE RECORDS SUMMARY | 2025-05-22 19:33 | XMS_ITS | Clinical Summary ---
Author Organization [employer] Address [address] [place] [address] [address] [place] [address] Care Team Providers Care Transition Advisor Name Role Phone Unavailable Primary Care Provider [...] Panel 1968 SDOH Screening 1968 Sigmoidoscopy 1968 Disability Screening 1968 Alcohol/Substance Use Screening 1980 Hepatitis C Screening 1986 DTaP/Tdap/Td Vaccines (1 - Tdap) 1987 Hepatitis B Vaccines (1 of 3 - 19+ 3-dose series) 1987 Pneumococcal Vaccine: 50+ Ye ars (1 of 2 - PCV) 1987 Zoster Vaccines (1 of 2) 2018 Dental Oral Exam 05/09/2023 11/08/2022 Tobacco Screening 01/22/2024 01/21/2023 COVID-19 Vaccine (1 - 2023-2 5 season) 2024 Influenza Vaccine (#1) 2025 RSV Patients and Pa tients Aged 60 [...] patient's age to complete this topic Meningococcal B Vaccine Aged Out No l onger eligible based on patient's age to complete [...] Most Recently Relevant to Health Maintenance Insurance [facility] MEDICAID STAND ADULT
--- OUTSIDE RECORDS SUMMARY | 2025-05-22 19:33 | XMS_ITS | Encounter Summary ---
Author Organization [employer] Address [address] [facility] [address] [place] [address] Care Team Providers Care Cat Hooker Name Role Phone Unavailable Primary Care Provider Unavailabl e Encounter Details Date Type Department Care Team (Late st Contact Info) Description 01/25/2023 Abstract [facility] ADULT DENTAL [address] [place] [address] Nathen Davis DDS [address] [place] [address] Social History Tobacco Use Types Packs/Day Years [...]
--- OUTSIDE RECORDS SUMMARY | 2025-05-22 19:33 | XMS_ITS | Encounter Summary ---
Author Organization [employer] Address [address] [facility] [address] [place] [address] Care Team Providers Care Meat Curer Name Role Phone Unavailable Primary Care Provider Unavailabl e Reason for Visit * Reason Onset Date Comments Appointment 01/17/2023 Encounter Details Date Type Department Care Team ([facility] st Contact Info) Description 01/17/2023 Telephone C ADULT DENTAL [address] [place] [address] Nathen Davis DDS [address] [place], [place] [id number] Appointment Social History Tobacco Use Types Packs/Day [...]
--- NOTE | 2025-05-22 20:02 | PC.NURSE ---
pt half undressed in the hallway, assisted with putting pants on. pt sitting back on the bed, making disrespectful remarks to RN
--- NOTE | 2025-05-22 20:04 | ED.GENADULT ---
HPI - General Adult General Chief complaint: ETOH/Substance Use Stated complaint: ETOH Time Seen by Provider: 05/22/25 18:04 Source: patient and EMS Limitations: other (Intoxication) History of Present Illness ED Provider: Brielle Hernandez PA-C HPI narrative: 54-year-old male with a history of alcohol use disorder presents intoxicated. Patient was found on the curbside face down in the dirt, he had both marijuana and empty bottles on his person. EMS was called to the scene. History limited as the patient is clinically intoxicated. The patient has no pain related complaints at this time. Related Data Home Medications ?Medication ?Instructions ?Recorded ?Confirmed buprenorphine 8 mg-naloxone 2 mg 10 mg sublingual BID 03/01/22 05/07/25 sublingual film (Suboxone) buspirone 10 mg tablet 10 mg PO BID 03/01/22 05/07/25 sertraline 50 mg tablet 50 mg PO BEDTIME 03/01/22 05/07/25 Previous Rx's ?Medication ?Instructions ?Recorded lidocaine 5 % topical patch 1 patch topical DAILY pain #15 ea 11/28/23 nicotine 21 mg/24 hr daily 1 patch transdermal DAILY #28 ea 04/22/24 transdermal patch benzonatate 150 mg capsule 150 mg PO BID PRN cough #14 caps 06/17/24 albuterol sulfate 90 mcg/actuation 1 inh inhalation QID PRN shortness 09/08/24 aerosol inhaler (Ventolin HFA) of breath or wheezing #8.5 grams cyclobenzaprine 10 mg tablet 10 mg PO TID PRN pain #20 tabs 09/08/24 meloxicam 15 mg tablet 15 mg PO DAILY #14 tabs 09/08/24 trazodone 150 mg tablet 150 mg PO BEDTIME #90 tabs 12/14/24 pantoprazole 40 mg tablet,delayed 40 mg PO DAILY #90 tabs 02/27/25 release fluticasone furoate 200 1 inh inhalation DAILY #30 ea 05/07/25 mcg/actuation blister powder for inhalation (Arnuity Ellipta) Allergies Allergy/AdvReac Type Severity Reaction Status Date / Time No Known Allergies Allergy Verified 05/22/25 18:11 Review of Systems Review of Systems: Unable to obtain secondary to intoxication Yes all other systems are reviewed and are negative PMFSH Past Medical History Attestation statement: The following information was validated with the patient. Medical History History of fracture of clavicle No known health problems Surgical History History of hernia surgery History of bunionectomy Family History Family History Sister Mental health disorder Social History Social History Housing: Apartment Alcohol intake: current Alcohol intake frequency: 3 or more drinks per day Alcohol type: hard liquor Patient Tobacco Use Status: Current everyday Tobacco user Tobacco use type: Cigarette Cigarette Packs Per Day: 0.5 Cigarettes Per Day: 10 Smoked in Last 30 Days: No e-Cigarette/Vaping Use: Never Used Second Hand Smoke Exposure: Yes Advance Directives: No Advance Directives Information Provided: No Do you have a plan to hurt others: No Plan service: No Current occupational status: employed Cognitive needs: No Hearing needs: No Vision needs: No Physical Exam ED Vital Signs: Vital Signs - 24 hr 05/22/25 18:08 Temperature 96.9 F Pulse Rate 56 Respiratory Rate 16 Blood Pressure 105/76 Pulse Oximetry 95 Oxygen Delivery Method Room Air BMI result Body Mass Index 23.3 Const Other: Awake, faint abrasion noted central forehead, face is dirty, Orientation/consciousness: oriented to person and oriented to place HENMT Other: Alcohol halitosis, dentition intact, no bleeding from the mouth no bleeding from either nares Resp Effort & Inspection: normal respiratory effort Cardio Other: Normal peripheral perfusion Skin Other: Warm dry no rash Neuro General: oriented to person, oriented to place, gait normal, no focal motor deficits and CN's II-XI intact bilaterally Psych Other: Hypersexual, belligerent at times Course Reevaluation(s) Reevaluation #1: Patient is clinically sober, he has been up and ambulating with steady gait, he has been very disruptive to staff and other patients, I am discharging him Time: 21:41 Medical Decision Making Medical Decision Making MDM Narrative: 54-year-old male with a history of alcohol use disorder presents intoxicated. Patient was found on the curbside face down in the dirt, he had both marijuana and empty bottles on his person. EMS was called to the scene. History limited as the patient is clinically intoxicated. The patient has no pain related complaints at this time. Problem: Alcohol use disorder History: Per patient I have considered the following differential diagnoses: Alcohol intoxication, drug intoxication, intracranial hemorrhage, cervical spine injury, facial bone fracture Plan: Patient was found down on the ground unclear if there was a fall, or if he become unresponsive secondary to his alcohol intake. We will be scanning his head and neck, he is not a reliable historian. I do not feel he requires maxillofacial imaging, he has no facial deformity there was no bleeding from the mouth or the nose. We will screen basic labs, drug screen and ethanol in the event he requires further medical attention. I have independently reviewed the following tests: Labs: No leukocytosis, not anemic, no electrolyte abnormality, ethanol 464, drug screen pending CT brain: CT cervical spine:Findings: Mild multilevel retrolisthesis and anterolisthesis, degenerative. No fracture. Multilevel degenerative change is most prominent at C6/C7 with moderate to severe central spinal canal stenosis. No epidural hematoma. Normal thickness of the prevertebral soft tissues. The lung apices are clear. Impression: No acute findings. Differential Diagnosis Differential Diagnoses: The differential diagnosis associated with the presentation includes See medical decision-making Admission/Observation Consideration of admission/observation: Escalation of care including admission/observation considered Not applicable at this time Lab Data MDM Lab Attestation statement: I reviewed the patient's lab results. 05/22/25 18:43 05/22/25 18:44 Labs: Lab Results 05/22/25 05/22/25 Range/Units 18:43 18:44 WBC 6.4 (4.8-10.8) X10*3/uL RBC 4.21 L (4.60-5.80) X10*6/uL Hgb 13.8 L (14.0-18.0) g/dl Hct 40.6 L (42.0-52.0) % MCV 96.4 (80.0-98.0) fL MCH 32.8 (27.0-33.0) pg MCHC 34.0 (31.0-36.0) g/dl RDW 13.3 (11.0-16.0) % Plt Count 232 (160-400) X10*3/uL MPV 8.8 L (9.4-12.4) fL Immature Gran % (Auto) 0.2 (0.0-0.4) % Neut % (Auto) 46.9 (45-73) % Lymph % (Auto) 42.7 H (20-40) % [place] % (Auto) 6.9 (2-11) % Eos % (Auto) 1.9 (0-4) % Baso % (Auto) 1.4 (0-2) % Lymph # (Auto) 2.7 (1.2-4.9) X10*3/uL [place] # (Auto) 0.4 (0.1-1.2) X10*3/uL Eos # (Auto) 0.1 (0.0-0.4) X10*3/uL Baso # (Auto) 0.1 (0.0-0.2) X10*3/uL Abs Immat Gran (auto) 0.01 (0.00-0.03) X10*3/uL Absolute Neuts (auto) 3.0 (2.0-8.3) x10*3/uL Absolute Nucleated RBC 0.000 (0.0-0.012) X10*3/uL Nucleated RBC % (auto) 0.0 (0.0-0.2) /100WBC Sodium 151 H (135-145) mmol/L Potassium 3.7 (3.3-5.1) mmol/L Chloride 112 H (96-108) mmol/L Carbon Dioxide 29 (22-29) mmol/L Anion Gap 14 (12-20) BUN 9 (9-16) mg/dL Creatinine 0.91 (0.5-1.4) mg/dL Estim Creat Clear Calc 78.8 Estimated GFR > 60 Random Glucose 79 (60-115) mg/dL Calcium 8.4 (8.4-10.2) mg/dL Magnesium 2.4 (1.6-2.6) mg/dL Total Bilirubin 0.3 (0.0-1.0) mg/dL AST 31 (5-37) U/L ALT 13 (0-40) U/L Alkaline Phosphatase 78 (39-117) U/L Total Protein 6.7 (6.5-8.0) g/dL Albumin 4.5 (3.5-5.0) g/dL Lipase 69 (8-78) U/L Salicylates < 5.0 L (15-30) mg/dL Acetaminophen < 3 (<30) mcg/mL Ethyl Alcohol 464 H* mg/dL Radiology Impression Discussion of test interpretation with radiology: I have reviewed the radiologist's reading. Discharge Plan Discharge Clinical Impression: Alcohol intoxication Patient Disposition: Home, Self-Care Instructions: Alcohol Intoxication (ED), Alcohol Use Disorder (ED) Additional Instructions: You were monitored in the emergency room for your safety until you were clinically sober. I have provided you with a list of outpatient resources for detox. CT scans of your head and neck were normal. Prescriptions: No Action trazodone 150 mg tablet 150 mg PO BEDTIME Qty: 90 2RF pantoprazole 40 mg tablet,delayed release (DR/EC) 40 mg PO DAILY Qty: 90 0RF buspirone 10 mg tablet 10 mg PO BID sertraline 50 mg tablet 50 mg PO BEDTIME buprenorphine-naloxone [Suboxone] 8-2 mg film 10 mg sublingual BID nicotine 21 mg/24 hr patch 24 hour 1 patch transdermal DAILY Qty: 28 1RF lidocaine 5 % adhesive patch,medicated 1 patch topical DAILY Qty: 15 0RF Rx Instructions: leave on most painful area for up to 12 hrs fluticasone furoate [Arnuity Ellipta] 200 mcg/actuation blister with device 1 inh inhalation DAILY Qty: 30 0RF benzonatate 150 mg capsule 150 mg PO BID PRN (Reason: cough) Qty: 14 0RF albuterol sulfate [Ventolin HFA] 90 mcg/actuation HFA aerosol inhaler 1 inh inhalation QID PRN (Reason: shortness of breath or wheezing) Qty: 8.5 1RF meloxicam 15 mg tablet 15 mg PO DAILY Qty: 14 0RF cyclobenzaprine 10 mg tablet 10 mg PO TID PRN (Reason: pain) Qty: 20 0RF Print Language: Mongolian
--- NOTE | 2025-05-22 21:41 | PC.NURSE ---
pt walking around the ED, requesting to go home
[2025-05-22 21:57] VITALS: BP 109/65; PULSE 65; RESP 18; TEMP 36.2; O2SAT 98
--- NOTE | 2025-05-22 21:59 | PC.NURSE ---
pt given belonging, security walked w/ pt to waiting room
[2025-05-22 22:02] VITALS: BP 109/65; PULSE 65; RESP 18; TEMP 36.2; O2SAT 98
== END 2025-05-22 22:03 | disposition home or self-care (01) ==
PROVIDERS: Physician Assistant Medical; Emergency Provider Emergency Medicine
DX: F10.129 Alcohol abuse with intoxication, unspecified (principal); Y90.8 Blood alcohol level of 240 mg/100 ml or more; R51.9 Headache, unspecified; M54.2 Cervicalgia; Z51.81 Encounter for therapeutic drug level monitoring; Z79.899 Other long term (current) drug therapy
CPT/HCPCS: 36415; 70450; 72125; 80053; 80143; 80179; 80307; 83690; 83735; 85025; 99284

== ENCOUNTER → 2025-05-22 18:21 | Outpatient (BNV) | payer OTHER, SELFPAY | PROVIDERS: Visit Provider Radiology Diagnostic Radiology | DX: M48.02 Spinal stenosis, cervical region (principal); R90.82 White matter disease, unspecified | CPT/HCPCS: 70450; 72125 ==

== ENCOUNTER 2025-09-09 08:10 | Outpatient (REF) | payer OTHER, SELFPAY ==
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
--- OUTSIDE RECORDS SUMMARY | 2025-09-09 08:17 | XMS_ITS | Encounter Summary ---
Author Organization [employer] Address [address] [facility] [address] [place] [address] Care Team Providers Care Family And Marriage Counsellor Name Role Phone Unavailable Primary Care Provider Unavailabl e Encounter Details Date Type Department Care Team (Late st Contact Info) Description 01/25/2023 Abstract [facility] ADULT DENTAL [address] [place] [address] Nathen Davis DDS [address] [place] [address] Social History Tobacco Use Types Packs/Day Years [...]
--- OUTSIDE RECORDS SUMMARY | 2025-09-09 08:18 | XMS_ITS | Encounter Summary ---
Author Organization [employer] Address [address] [facility] [address] [place] [address] Care Team Providers Care Elderly Sitter Name Role Phone Unavailable Primary Care Provider Unavailabl e Reason for Visit * Reason Onset Date Comments Appointment 01/17/2023 Encounter Details Date Type Department Care Team ([facility] st Contact Info) Description 01/17/2023 Telephone C ADULT DENTAL [address] [place] [address] Nathen Davis DDS [address] [place], [place] [id number] Appointment Social History Tobacco Use Types Packs/Day [...]
--- OUTSIDE RECORDS SUMMARY | 2025-09-09 08:18 | XMS_ITS | Clinical Summary ---
Author Organization [employer] Address [address] [place] [address] [address] [place] [address] Care Team Providers Care Termite Treater Name Role Phone Unavailable Primary Care Provider [...] Screening 01/22/2024 01/21/2023 COVID-19 Vaccine (1 - 2024-2 6 season) 2025 Influenza Vaccine (#1) 2025 RSV Patients and [...] Most Recently Relevant to Health Maintenance Insurance [facility] MED[facility] STAND ADULT
== END 2025-09-09 08:11 | disposition home or self-care (01) ==
LOC: HO.XRAY 08:10
PROVIDERS: PCP Internal Medicine
DX: K21.9 Gastro-esophageal reflux disease without esophagitis (principal); R11.0 Nausea; R10.9 Unspecified abdominal pain
CPT/HCPCS: 74240

== ENCOUNTER → 2025-09-09 08:12 | Outpatient (BNV) | payer OTHER, SELFPAY | PROVIDERS: PCP Internal Medicine; Visit Provider Radiology Diagnostic Radiology | DX: K21.9 Gastro-esophageal reflux disease without esophagitis (principal) | CPT/HCPCS: 74246 ==